=== PATIENT | female | born 1945 | race Caucasian/White ===

== ENCOUNTER 2023-09-05 11:48 | Outpatient (REF) | payer OTHER, MEDICAID, SELFPAY ==
[2023-09-05 14:28] LABS: Alanine Aminotransferase 22 U/L (0-31); Albumin Level 4.4 g/dL (3.5-5.0); Alkaline Phosphatase 84 U/L (39-117); Anion Gap 15 (12-20); Aspartate Amino Transferase 24 U/L (5-31); Bilirubin Direct < 0.2 mg/dL (0.0-0.5); Bilirubin Total 0.2 mg/dL (0.0-1.0); Blood Urea Nitrogen 24 mg/dL (9-16); Calcium 10.1 mg/dL (8.4-10.2); Carbon Dioxide 23 mmol/L (22-29); Chloride 104 mmol/L (96-108); Cholesterol 235 mg/dL (<200); Estimated Glomerular Filt Rate 40; Glucose Random 253 mg/dL (60-115); HDL Cholesterol 77 mg/dL (>40); LDL Cholesterol Calculated 134 mg/dL (<100); Potassium 4.6 mmol/L (3.3-5.1); Sodium 137 mmol/L (135-145); Total Protein 7.6 g/dL (6.5-8.0); Triglycerides 121 mg/dL (<150)
[2023-09-05 14:46] LABS: Thyroid Stimulating Hormone 0.66 uIU/mL (0.32-4.0)
== END 2023-09-05 11:49 | disposition home or self-care (01) ==
LOC: HO.CHCLDS 11:48
PROVIDERS: Visit Provider Student in an Organized Health Care Education/Training Program
DX: I12.9 Hypertensive chronic kidney disease with stage 1 through stage 4 chronic kidney disease, or unspecified chronic kidney disease (principal); E11.22 Type 2 diabetes mellitus with diabetic chronic kidney disease; N18.9 Chronic kidney disease, unspecified; E03.9 Hypothyroidism, unspecified
CPT/HCPCS: 36415; 80048; 80061; 80076; 84443

== ENCOUNTER 2024-01-11 09:33 | Outpatient (REF) | payer OTHER, MEDICAID, SELFPAY ==
[2024-01-11 15:16] LABS: Alanine Aminotransferase 14 U/L (0-31); Albumin Level 4.3 g/dL (3.5-5.0); Alkaline Phosphatase 75 U/L (39-117); Anion Gap 15 (12-20); Aspartate Amino Transferase 16 U/L (5-31); Bilirubin Direct < 0.2 mg/dL (0.0-0.5); Bilirubin Total 0.2 mg/dL (0.0-1.0); Blood Urea Nitrogen 22 mg/dL (9-16); Calcium 10.2 mg/dL (8.4-10.2); Carbon Dioxide 27 mmol/L (22-29); Chloride 103 mmol/L (96-108); Cholesterol 222 mg/dL (<200); Estimated Glomerular Filt Rate 51; Glucose Random 111 mg/dL (60-115); HDL Cholesterol 71 mg/dL (>40); LDL Cholesterol Calculated 129 mg/dL (<100); Potassium 4.7 mmol/L (3.3-5.1); Sodium 140 mmol/L (135-145); Total Protein 7.5 g/dL (6.5-8.0); Triglycerides 113 mg/dL (<150)
[2024-01-11 15:24] LABS: Thyroid Stimulating Hormone 0.95 uIU/mL (0.32-4.0)
== END 2024-01-11 09:34 | disposition home or self-care (01) ==
LOC: HO.CHCLDS 09:33
PROVIDERS: Visit Provider Student in an Organized Health Care Education/Training Program
DX: E03.9 Hypothyroidism, unspecified (principal); I10 Essential (primary) hypertension
CPT/HCPCS: 36415; 80048; 80061; 80076; 84443

== ENCOUNTER 2024-05-15 11:16 | Outpatient (REF) | payer OTHER, MEDICAID, SELFPAY ==
[2024-05-15 14:44] LABS: Alanine Aminotransferase 14 U/L (0-31); Albumin Level 4.5 g/dL (3.5-5.0); Alkaline Phosphatase 72 U/L (39-117); Anion Gap 15 (12-20); Aspartate Amino Transferase 20 U/L (5-31); Bilirubin Direct 0.1 mg/dL (0.0-0.5); Bilirubin Total 0.3 mg/dL (0.0-1.0); Blood Urea Nitrogen 27 mg/dL (9-16); Calcium 10.5 mg/dL (8.4-10.2); Carbon Dioxide 26 mmol/L (22-29); Chloride 106 mmol/L (96-108); Cholesterol 216 mg/dL (<200); Estimated Glomerular Filt Rate 47; Glucose Random 129 mg/dL (60-115); HDL Cholesterol 67 mg/dL (>40); LDL Cholesterol Calculated 125 mg/dL (<100); Potassium 4.9 mmol/L (3.3-5.1); Sodium 142 mmol/L (135-145); Total Protein 8.1 g/dL (6.5-8.0); Triglycerides 121 mg/dL (<150)
[2024-05-15 14:50] LABS: Estimated Average Glucose 157 mg/dL; Hemoglobin A1c % 7.1 % (<6.0)
[2024-05-15 15:01] LABS: TSH reflex Free T4 1.78 uIU/mL (0.32-4.0)
== END 2024-05-15 11:17 | disposition home or self-care (01) ==
LOC: HO.CHCLDS 11:16
PROVIDERS: Visit Provider Student in an Organized Health Care Education/Training Program
DX: E11.22 Type 2 diabetes mellitus with diabetic chronic kidney disease (principal); I12.9 Hypertensive chronic kidney disease with stage 1 through stage 4 chronic kidney disease, or unspecified chronic kidney disease; E03.9 Hypothyroidism, unspecified; N18.30 Chronic kidney disease, stage 3 unspecified
CPT/HCPCS: 36415; 80048; 80061; 80076; 83036; 84443

== ENCOUNTER 2024-11-28 11:07 | Outpatient (REF) | payer OTHER, SELFPAY ==
--- OUTSIDE RECORDS SUMMARY | 2024-11-28 12:49 | XMS_ITS | Encounter Summary ---
Author Organization [employer] Address [address] [facility] [address] [place] [address] Care Team Providers Care Preparation Supervisor Freezing Name Role Phone Vanessa Pettit MD Primary Care Provider [phone] Encounter Details Date Type Department Care Team (Latest Contact Info) Description 11/28/2024 Travel Social History Tobacco Use Types Packs/Day Years Used Date Smoking Tobacco: Never Passive Smoke Exposure: Never Smokeless Tobacco: Never Alcohol Use Standard Drinks/Week Comments Never 0 (1 standard drink = 0.6 oz pur e alcohol) Alcohol Answer Date Recorded Frequency of Alcohol Consumption Not on file 01/11/2024 Average Number of Drinks Not on file 024 Frequency of Binge Drinking Not on file 12/17 Score 0 01/11/2024 Depression Answer Date Recorded Patient Health Questionnaire-9 Score 4 10/02/2024 Patient Health Questionnaire-9 Score 4 10/02/2024 Last PHQ-9: Questionnaire Data Not on file 0 10/02/2024 Housing Stability Answer Date Recorded What is your housing situation today? I have shawn vergara 01/11/[address] you li ve. Do you have problems with any of the following? None of the above 01/11/2024 Food Insecurity Answer Date Recorded Within the past 12 months, y ou worried that your food would run out before you got money to buy more: Never True 01/11/2024 Within the past 12 months,th e food you bought just didn't last and you didn't have enough money to get more: Never True Transportation Answer Date Recorded In the past 12 months, has l ack of transportation kept you from medical appts, meetings, work or from getting things needed for daily living? No 01/11/2024 Utilities Answer Date Recorded In the past 12 months, has t he electric, gas, oil or water company threatened to shut off services in your home? No 01/11/2024 Depression Answer Date Recorded Patient Health Questionnaire-2 Score 0 10/02/2024 Comments No Sex and Gender Information Value Date Recorded Sex Assigned at Female 07/17/2022 10:18 AM EDT Legal Sex Female 10:18 AM EDT Gender Identity Female 07/17/2022 10:18 AM EDT Sexual Orientation Straight 07/17/2022 10 :18 AM EDT documented as of this encounter Plan of Treatment Upcoming Encounters Date Type Department Care Team (Late st Contact Info) Description 12/19/2024 9:15 AM EDT Office Visit [facility] MED & PEDS [address] [place] [address] Vanessa Pettit MD [address] [place] [address] documented as of this encounter Goals Goal Patient Goal Type Associated Problems Recent Progress Patient-Stated? Author Blood Pressure < 140/90 Blood Pressure 182/84(11/28 10:08 AM EDT) No Jaren Martines, PharmD Hemoglobin A1c < 8 Result Component 7.1(05/15/20 24 11:19 AM EDT) No Jaren Martines, PharmD Note: Age 77, multiple comorbidities documented as of this encounter Visit Diagnoses Not on filedocumented in this encounter Additional Health Concerns Assessment Noted Time PHQ-9 Depression Total Score: 4 10/02/19 25 10:43 AM EST documented as of this encounter Care Teams Preparation Supervisor Freezing Relationship Specialty Start Date End Date Vanessa Pettit MD [address] [place] [id number] PCP - General Family Medicine 08/29/12 documented as of this encounter
--- OUTSIDE RECORDS SUMMARY | 2024-11-28 12:49 | XMS_ITS | Encounter Summary ---
Author Organization [employer] Address 75 [facility] 7t [place] [address] Care Team Providers Care Machine Or Machinery Mechanic Name Role Phone Vanessa Pettit MD Primary Care Provider [phone] Encounter Details Date Type Department Care Team (Late Contact Info) Description 09/08/2022 Orders Only [facility] MEDICINE [address] [place] [address] Vanessa Pettit MD [address] [place], [place] [phone] Type 2 diabetes mellitus without complication, without long-term current use of insulin ([facility]) (Primary Dx) Social History Tobacco Use Types Packs/Day Years Used Date Smoking Tobacco: Never Assessed Comments Unknown Sex and Gender Information Value Date Recorded Sex Assigned at Female 07/17/2022 10:18 AM EDT Legal Sex Female 10:18 AM EDT Gender Identity Female 07/17/2022 10:18 AM EDT Sexual Orientation Straight 07/17/2022 10 :18 AM EDT COVID-19 Exposure Response Date Recorded In the last 10 days, have yo u been in contact with someone who was confirmed or suspected to have Coronavirus/COVID-19? No / Unsure 09/07/2022 8:58 AM EST documented as of this encounter Plan of Treatment Upcoming Encounters Date Type Department Care Team (Late Contact Info) Description 12/19/2024 9:15 AM EDT Office Visit [facility] MED & PEDS [address] [place], [place] [phone] Vanessa Pettit MD [address] [place], [place] [phone] documented as of this encounter Goals Goal Patient Goal Type Associated Problems Recent Progress Patient-Stated? Author Blood Pressure < 140/90 Blood Pressure 182/84(11/28 10:08 AM EDT) No Jaren Martines PharmD Hemoglobin A1c < 8 Result Component 7.1(05/15/20 11:19 AM EDT) No Jaren Martines PharmD Note: Age 77, multiple comorbidities documented as of this encounter Visit Diagnoses Diagnosis Type 2 diabetes mellitus without complication, without long-term current use of insulin ([facility])- Primary documented in this encounter Care Teams Machine Or Machinery Mechanic Relationship Specialty Start Date End Date Vanessa Pettit MD [address] [place] [phone] PCP - General Family Medicine 08/29/12 documented as of this encounter
--- OUTSIDE RECORDS SUMMARY | 2024-11-28 12:49 | XMS_ITS | Encounter Summary ---
Author Organization [employer] Address [address] [facility] 7t [place] [address] Care Team Providers Care Med Aide Name Role Phone Vanessa Pettit MD Primary Care Provider [phone] Reason for Visit * Reason Comments Med Refill Encounter Details Date Type Department Care Team ([facility] st Contact Info) Description 11/27/2024 Refill [facility] MEDICINE [address] [place] [address] Vanessa Pettit MD [address] [place], [place] [phone] Social History Tobacco Use Types Packs/Day Years Used Date Smoking Tobacco: Never Smokeless Tobacco: Never Alcohol Use Standard [...] Description 12/19/2024 9:15 AM EDT Office Visit [facility] MED & PEDS [address] [place] [address] Vanessa Pettit MD [address] [place] [address] documented as of this encounter Goals Goal [...] documented as of this encounter Care Teams Med Aide Relationship Specialty Start Date End Date Vanessa Pettit MD [address] [place] [id number] PCP - General Family Medicine 08/29/12 documented as of this encounter
--- OUTSIDE RECORDS SUMMARY | 2024-11-28 12:49 | XMS_ITS | Encounter Summary ---
Author Organization [employer] Address 75 [facility] 7t [place] [address] Care Team Providers Care Machine Shorthand Reporter Name Role Phone Vanessa Pettit MD Primary Care Provider [phone] Encounter Details Date Type Department Care Team ([facility] Contact Info) Description 03/16/2023 Orders Only [facility] MED & PEDS [address] [place] [address] Vanessa Pettit MD [address] [place] [address] Social History Tobacco Use Types Packs/Day Years Used Date Smoking Tobacco: Never Smokeless Tobacco: Never Alcohol Use Standard Drinks/Week Comments Never 0 (1 standard drink = 0.6 oz pur e alcohol) Comments Unknown Sex and Gender Information Value [...] suspected to have Coronavirus/COVID-19? No / Unsure 03/14/2023 9:02 AM EDT documented as of this encounter Plan of Treatment Upcoming Encounters Date Type Department Care Team ([facility] Contact Info) Description 12/19/2024 9:15 AM EDT Office Visit [facility] MED & PEDS [address] [place], [place] [phone] Vanessa Pettit MD [address] [place] [address] documented as of this encounter Goals Goal Patient Goal Type Associated Problems Recent Progress Patient-Stated? Author Blood Pressure < 140/90 Blood Pressure 182/84(11/28 10:08 AM EDT) No Jaren Martines, PharmBubba Hemoglobin A1c < 8 Result Component 7.1(05/15/20 11:19 AM EDT) No Jaren Martines PharmD Note: Age 77, multiple comorbidities documented as of this encounter Visit Diagnoses Not on filedocumented in this encounter Care Teams Machine Shorthand Reporter Relationship Specialty Start Date End Date Vanessa Pettit MD [address] [place] [phone] PCP - General Family Medicine 08/29/12 documented as of this encounter
--- OUTSIDE RECORDS SUMMARY | 2024-11-28 12:49 | XMS_ITS | Encounter Summary ---
Author Organization [facility] Address [address] [place] [address] Phone Care Team Providers Care Shuttle Repairer Name Role Phone Vanessa Pettit MD Primary Care Provider [phone] Encounter Details Date Type Department Care Team (Late st Contact Info) Description 11/27/2022 Documentation Only [facility], [address] [place] [address] Vanessa Pettit MD [address] [place], [place] [phone] Social History Tobacco Use Types Packs/Day Years Used Date Smoking Tobacco: Never Alcohol Use Standard Drinks/Week Comments No 0 (1 standard drink = 0.6 oz pur e alcohol) Comments Unknown Sex and Gender Information Value Date Recorded Sex Assigned at Not on file Legal Sex Female 4:30 PM EST Gender Identity Not on file Sexual Orientation Not on file documented as of this encounter Plan of Treatment Not on file documented as of this encounter Visit Diagnoses Not on filedocumented in this encounter Care Teams Shuttle Repairer Relationship Specialty Start Date End Date Vanessa Pettit MD [address] [place] [phone] PCP - General 07/22/19 documented as of this encounter
--- OUTSIDE RECORDS SUMMARY | 2024-11-28 12:49 | XMS_ITS | Clinical Summary ---
Author Organization [employer] Address 75 [facility] 7t [place] [address] Care Team Providers Care Nailing Machine Operator Automatic Name Role Phone Vanessa Pettit MD Primary Care Provider [phone] Allergies No known active allergies Medications acetaminophen (Tylenol 8 Hour) 650 MG ER tablet take 1 Tablet by oral route every 8 hours as needed 10/24/19 20 Active isosorbide mononitrate ER (Imdur) 30 MG 24 hr tablet Take 1 tablet by mouth in the morning. 06/19/20 22 Active Lifitegrast (Xiidra) 5 % solution Administer 1 drop into affected eye(s) every 12 (twelve) hours. Active Lancet Devices (Autolet) lancing device 1 each by Other route if needed. Use as instructed Active atorvastatin (Lipitor) 40 MG tablet Take 40 mg by mouth at bedtime. 12/14/19 23 Active mirtazapine (Remeron) 15 MG tablet Take 1 tablet (15 mg) by mouth at bedtime. 30 tablet 3 04/13/20 23 Active Blood Glucose Monitoring Suppl (ONE TOUCH ULTRA 2) w/Device kit TEST BLOOD SUGAR TWICE DAILY 1 kit 2 07/09/20 23 Active lidocaine-pril ocaine (Emla) 2.5-2.5 % cream Apply topically 2 times daily. 30 g 11 10/05/19 24 Active amLODIPine (Norvasc) 10 MG tablet TAKE ONE TABLET EVERY MORNING 90 tablet 3 03/04/20 24 Active ibuprofen 200 MG tablet Take 1 tablet (200 mg) by mouth Once per day. 100 tablet 2 05/15/20 24 025 Active cholecalcifero l (Vitamin D-3) 25 MCG (1000 UT) capsule Take 1 capsule (25 mcg) by mouth Once per day. 30 capsule 11 05/15/20 24 Active Aspirin Adult Low Strength 81 MG EC tablet TAKE ONE TABLET EVERY MORNING 30 tablet 11 06/04/20 24 Active Jardiance 25 MG TAKE ONE TABLET EVERY MORNING BEFORE BREAKFAST 30 tablet 3 07/01/20 24 Active metFORMIN (Glucophage) 500 MG tablet TAKE ONE TABLET TWICE DAILY IN THE MORNING AND AT BEDTIME 60 tablet 3 07/01/20 24 025 Active carvedilol (Coreg) 6.25 MG tablet TAKE ONE TABLET IN THE MORNING AND EVENING WITH MEALS 60 tablet 3 07/01/20 24 Active OneTouch Ultra Test test stripIndicatio ns:Type 2 diabetes mellitus with stage 3 chronic kidney disease, without long-term current use of insulin, unspecified whether stage 3a or 3b CKD (CMS/HCC) TEST BLOOD SUGAR TWICE DAILY 100 strip 11 07/22/20 24 Active omeprazole (PriLOSEC) [address] capsule TAKE ONE CAPSULE EVERY MORNING BEFORE BREAKFAST 90 capsule 3 07/22/20 24 Active Lancets (OneTouch Delica Plus [id number]) [facility] [place] BLOOD SUGAR TWICE DAILY 100 each 11 09/04/20 24 Active levothyroxine (Synthroid, Levoxyl) 75 MCG tablet TAKE ONE TABLET EVERY MORNING 90 tablet 09/15/20 24 Active hydrALAZINE (Apresoline) 25 MG tablet TAKE ONE TABLET EVERY MORNING 30 tablet 10/07/19 25 Active traZODone (Desyrel) 50 MG tabletIndicati ons:Insomnia, unspecified type TAKE ONE TABLET EVERY NIGHT AT BEDTIME 30 tablet 10/07/19 25 Active Dulaglutide (Trulicity) 1.5 MG/0.5ML solution auto-injectorI ndications:Typ e 2 diabetes mellitus with stage 3 chronic kidney disease, without long-term current use of insulin, unspecified whether stage 3a or 3b CKD (CMS/HCC) Inject 1.5 mg under the skin 1 (one) time per week. 2 mL 3 11/19/19 25 Active Dulaglutide (Trulicity) 1.5 MG/0.5ML solution auto-injectorI ndications:Typ e 2 diabetes mellitus with stage 3 chronic kidney disease, without long-term current use of insulin, unspecified whether stage 3a or 3b CKD (CMS/HCC) Inject 1.5 mg under the skin 1 (one) time per week. 2 mL 3 11/19/19 25 Active loratadine (Claritin) 10 MG tablet TAKE ONE TABLET EVERY MORNING 30 tablet 3 11/29/19 25 Active loratadine (Claritin) 10 MG tablet TAKE ONE TABLET EVERY MORNING 30 tablet 3 05/13/20 24 025 Discontinued Dulaglutide (Trulicity) 1.5 MG/0.5ML solution auto-injectorI ndications:Typ e 2 diabetes mellitus with stage 3 chronic kidney disease, without long-term current use of insulin, unspecified whether stage 3a or 3b CKD (CMS/HCC) Inject 0.5 mL (1.5 mg) under the skin 1 (one) time per week. 2 mL 3 07/28/20 24 025 Discontinued(Re order (will not trigger notification to Pharmacy)) polyethylene glycol, PEG, 3350 (MiraLax) 17 GM/SCOOP powder Take 17 g by mouth Once per day. 527 g 2 07/28/20 24 025 Dulaglutide (Trulicity) 1.5 MG/0.5ML solution auto-injectorI ndications:Typ e 2 diabetes mellitus with stage 3 chronic kidney disease, without long-term current use of insulin, unspecified whether stage 3a or 3b CKD (CMS/HCC) Inject 1.5 mg under the skin 1 (one) time per week. 2 mL 3 11/14/19 25 025 Discontinued(Re order (will not trigger notification to Pharmacy)) Active Problems Problem Noted Date Diagnosed Date Hypothyroidism 11/27/2022 Chronic kidney disease (CKD) 09/07/2022 Hypertensive kidney disease, stage III 0 Acquired trigger finger 12/11/2011 Allergic rhinitis 12/11/2011 Diabetes mellitus 12/11/2011 Essential hypertension 12/11/2011 Pain in limb 12/11/2011 Hypercholesterolemia 12/11/2011 Encounters Date Type Department Care Team Description 11/28/2024 10:40 AM EDT Office Visit [facility] MED & PEDS [address] [place] [address] Emily Jacobson MD Essential hypertension (Primary Dx); Acquired hypothyroidism; Weight loss 11/28/2024 Travel 11/27/2024 Refill [facility] MEDICINE [address] [place] [address] Vanessa Pettit MD 11/14/2024 Orders Only [facility] 230 [place] [address] Dennis Carias MD Type 2 diabetes mellitus with stage 3 chronic kidney disease, without long-term current use of insulin, unspecified whether stage 3a or 3b CKD ([facility]) 11/14/2024 Telephone [facility] MED[facility] [address] [place] [address] Vanessa Pettit MD Nurse Triage 11/14/2024 Refill [facility] MED[facility] [address] [place] [address] Vanessa Pettit MD Type 2 diabetes mellitus with stage 3 chronic kidney disease, without long-term current use of insulin, unspecified whether stage 3a or 3b CKD ([facility]) 10/03/2024 Refill [facility] MED & PEDS [address] [place] [address] Vanessa Pettit MD Insomnia, unspecified type 10/02/2024 10:00 AM EST Office Visit [facility] MED & PEDS [address] [place] [address] Dennis Carias MD Viral URI (Primary Dx); Benign paroxysmal positional vertigo of right ear 10/02/2024 Travel 10/01/2024 Telephone [facility] MED & PEDS [address] [place] [address] aVnessa Pettit MD Nurse Triage 09/14/2024 Refill [facility] MEDICINE [address] [place] [address] Vanessa Pettit MD 09/04/2024 Refill [facility] DIABETES/NUTRITION [address] [place] [address] Vanessa Pettit MD from Last 3 Months Immunizations Name Administration Dates Next Due Influenza High-dose Quadriva lent Preservative Free 06/06/2021 Influenza Quadrivalent Adjuvanted 06/07/2022 Influenza injectable quadriv alent IIV4 with preservative 06/25/2019,08/05/2018,06/27/2016 Influenza injectable quadriv alent preservative free 07/04/2017 Influenza, High Dose Seasona l, Preservative Free 07/07/2024 Influenza, IIV3, injectable 06/25/2014 Influenza, Split (incl. chaparro fied surface antigen) 06/18/2013,05/30/2012 Influenza, seasonal, injecta ble, preservative free 05/31/2020 Moderna Covid-19 Vaccine 12+ 04/21/2022, 07/08/2021,12/22/2020,11/24 Pneumococcal Conjugate PCV 13 06/27/2016 Pneumococcal Conjugate PCV 20 04/28/2024 Pneumococcal Polysaccharide PPSV23 08/05/2018 Tdap 03/06/2018 Zoster, Recombinant 11/16/2022,09/07/2022 Social History Tobacco Use Types Packs/Day Years Used Date Smoking Tobacco: Never Passive Smoke Exposure: Never Smokeless Tobacco: Never Tobacco Cessation:Counseling Given: Not Answered Alcohol Use Standard Drinks/Week Comments Never 0 [...] Orientation Straight 07/17/2022 10 :18 AM EDT Last Filed Vital Signs Vital Sign Reading Time Taken Comments Blood Pressure 182/84 11/28/2024 10:08 AM EDT Pulse 70 11/28/2024 10:08 AM EDT Temperature 35.9 ??C (96.7 ??F) 11/28/2024 10:08 AM E DT Respiratory Rate 16 11/28/2024 10:08 AM EDT Oxygen Saturation 98% 11/28/2024 10:08 AM EDT Inhaled Oxygen Concentration - - Weight 52.2 kg (115 lb) 11/28/2024 10:08 AM EDT Height 147.3 cm (4' 10 ) 11/28/2024 10:08 AM EDT Body Mass Index 24.04 11/28/2024 10:08 AM EDT Plan of Treatment Upcoming Encounters Date Type Department Care Team (Late st Contact Info) Description 12/19/2024 9:15 AM EDT Office Visit [facility] MED & PEDS [address] [place] [address] Vanessa Pettit MD [address] [place] [address] Health Maintenance Due Date Last Done Comments Dental Oral Exam 1944 Dental Prophylaxis 1945 Dental X-Ray: Bitewings 1945 Eye Exam 02/15/1954 Dental X-Ray: Full Mouth 09/23/2018 09/22/2015 RSV Patients and Patients Aged 60 years or older (1 - 1-dose 75+ series) 02/15/2019 COVID-19 Vaccine ( season) 2024 04/28/2024, 04/21/2022, 07/08/2021, Additional history exists Diabetes: Hemoglobin A1C 08/15/2024 024, 01/11/2024, 09/05/2023, Additional history exists Diabetes: Foot Exam 11/07/2024 11/07/2023, 11/07/2023, 11/07/2023, Additional history exists Alcohol/Substance Use Screening 01/10/2025 01/11/2024 SDOH Screening 01/10/2025 01/11/2024 Lipid Panel 05/15/2025 05/15/2024, 12/17, 09/05/2023, Additional history exists Depression Screening 10/02/2025 10/02/2024, 10/02/19 Tobacco Screening 11/28/2025 11/28/2024 DTaP/Tdap/Td Vaccines (2 - Td or Tdap) 03/06/2028 03/06/2018 Zoster Vaccines Completed 11/16/2022, 09/07/2022 Pneumococcal Vaccine: 50+ Years Completed 04/28/2024, 08/05/2018, 06/27/2016 Influenza Vaccine Completed 07/07/2024, , 06/06/2021, Additional history exists HIB Vaccines Aged Out No longer eligi ble based on patient's age to complete this topic HPV Vaccines Aged Out No longer eligi ble based on patient's age to complete this topic Hepatitis A Vaccines Aged Out No long er eligible based on patient's age to complete this topic Hepatitis B Vaccines Aged Out No long er eligible based on patient's age to complete this topic IPV Vaccines Aged Out No longer eligi ble based on patient's age to complete this topic Meningococcal Vaccine Aged Out No francine clint eligible based on patient's age to complete this topic RSV under 20 months Aged Out No longe r eligible based on patient's age to complete this topic Rotavirus Vaccines Aged Out No longer eligible based on patient's age to complete this topic Goals Goal Patient Goal Type Associated Problems Recent Progress Patient-Stated? Author Blood Pressure < 140/90 Blood Pressure 182/84(11/28 10:08 AM EDT) No Jaren Martines, PharmD Hemoglobin A1c < 8 Result Component 7.1(05/15/20 11:19 AM EDT) No Jaren Martines, PharmD Note: Age 77, multiple comorbidities Procedures Procedure Name Priority Date/Time Associated Diagnosis Comments HEMOGLOBIN A1C Routine 05/15/2024 11:19 AM EDT Type 2 diabetes mellitus with stage 3 chronic kidney disease, without long-term current use of insulin, unspecified whether stage 3a or 3b CKD ([facility]) LIPID PANEL, STANDARD Routine 05/15/2024 11:19 AM EDT Stage 3 chronic kidney disease, unspecified whether stage 3a or 3b CKD (CMS/HCC) Essential hypertension Type 2 diabetes mellitus with stage 3 chronic kidney disease, without long-term current use of insulin, unspecified whether stage 3a or 3b CKD ([facility]/HCC) PANORAMIC RADIOGRAPHIC IMAGE Routine 09/22/2015 12:00 AM EST from Last 3 Months or Most Recently Relevant to Health Maintenance Results * (ABNORMAL) Hemoglobin A1c (05/15/2024 11:19 AM EDT) Hemoglobin A1c 7.1(H) <6.0 % [facility] Comment:Hemoglobin A1C Refer ence Range Adults: 4.8 - 6.0 % Non diabetic: < 6.0 % Goal: < 7.0 %Additional Action Suggested: > 8.0 %Note: Hemoglobin A1c results are invalid for patients with abnormal amounts of HbF. Blood transfusions may impact the HbA1c concentration in the patient sample. Estimated Average Glucose 157 mg/dL [facility] Comment:eAG = Estimated ave rage glucose which is %A1C expressed asaverage glucose, using the formula of the T7N-[id number] Glucose study (ADAG), Diabetes Care, Vol.31,#8,Apr. 2007 Blood Venous blood specimen / Unknown 05/15/2024 11:19 AM EDT 05/15/2024 2:18 PM EDT us Vanessa Pettit MD LAB BLOOD ORDERABLES Final Resul t [facility] [address] [place] [phone] * (ABNORMAL) Lipid Panel, Standard (05/15/2024 11:19 AM EDT) Triglycerides 121 <150 mg/dL [facility] Comment:Desirable Triglyceri de: less than 150 mg/dLBorderline High Triglyceride 150-199 mg/dLHigh Triglyceride: 200-499 mg/dLVery High Triglyceride: greater than or equal to 5OO mg/dL Cholesterol 216(H) <200 mg/dL [facility] Comment:Desirable Cholestero l: less than 200 mg/dLBorderline High Cholesterol: 200-239 mg/dLHigh Cholesterol: greater than 239 mg/dL LDL Cholesterol Calculated 125(H) <100 mg/dL [facility] Comment:Desirable LDL: less than 100 mg/dLNear Optimal/Above Optimal LDL: 110- 129 mg/dLBorderline High LDL: 130-159 mg/dLHigh LDL: 160-189 mg/dLVery High LDL: greater than or equal to 190 mg/dL HDL Cholesterol 67 >40 mg/dL [facility] Comment:Desirable HDL: great er than 40 mg/dL Note: This HDL assay may give artificially low results in patients with liver disease. Blood Venous blood specimen / Unknown 05/15/2024 11:19 AM EDT 05/15/2024 2:18 PM EDT us Vanessa Pettit MD LAB BLOOD ORDERABLES Final Resul t [facility] [address] [place] [phone] [phone] from Last 3 Months or Most Recently Relevant to Health Maintenance [place] [address] [place] [address] STANDARD [employer] Care Teams Nailing Machine Operator Automatic Relationship Specialty Start Date End Date Vanessa Pettit MD [address] [place] [id number] PCP - General Family Medicine 08/29/12
--- OUTSIDE RECORDS SUMMARY | 2024-11-28 12:49 | XMS_ITS | Clinical Summary ---
Author Organization [facility], Address [address] [place] [address] [place] [address] Phone Care Team Providers Care Calender Let Off Helper Name Role Phone Vanessa Pettit MD Primary Care Provider [phone] Allergies No known active allergies Medications ASPIRIN 81 PO Take 1 tablet by mouth 1 (one) time each day Active albuterol HFA (PROAIR HFA) 108 (90 Base) MCG/ACT inhaler Inhale 2 puffs 4 (four) times a day Active Blood Glucose Monitoring Suppl (AesRx) w/Device kit USE DIRECTED 07/28/20 19 Active carvedilol (COREG) 6.25 MG tablet TK 1 T PO BID WF 07/23/20 19 Active clopidogrel (PLAVIX) 75 MG tablet TK 1 T PO QD 07/23/20 19 Active conjugated estrogens (PREMARIN) vaginal cream Active fluticasone (FLONASE) 50 MCG/ACT nasal spray U 1 TO 2 SPRAYS IEN QD PRN 08/24/20 19 Active glipiZIDE (GLUCOTROL) 10 MG tablet TK 1 T PO BID B MEALS 08/20/20 19 Active ONE TOUCH ULTRA TEST test strip USE TO CHECK BLOOD GLUCOSE BID 07/21/20 19 Active levothyroxine (SYNTHROID, LEVOTHROID) 75 MCG tablet Take 1 tablet by mouth 1 (one) time each day Active lisinopril (PRINIVIL,ZESTR IL) 20 MG tablet TK 1 T PO D 09/18/19 20 Active loratadine (CLARITIN) 10 MG tablet TK 1 T PO QD 08/22/20 19 Active metFORMIN (GLUCOPHAGE) 1000 MG tablet TK 1 T PO BID WITH MORNING AND EVENING MEALS 08/23/20 19 Active omeprazole (PriLOSEC) [address] capsule TK 1 C PO QD AC 08/23/20 19 Active pravastatin (PRAVACHOL) 80 MG tablet TK 1 T PO D 08/23/20 19 Active amLODIPine (NORVASC) 5 MG tablet Take 5 mg by mouth every morning 12/09/19 23 Active Aspirin Low Dose 81 MG EC tablet Take 81 mg by mouth every morning 12/09/19 23 Active atorvastatin (LIPITOR) 10 MG tablet 10 mg every night 12/09/19 23 Active atorvastatin (LIPITOR) 40 MG tablet 40 mg every night 12/14/19 23 Active cyclobenzaprine (FLEXERIL) 5 MG tablet Take 5 mg by mouth 3 (three) times a day if needed 11/28/19 23 Active Trulicity 0.75 MG/0.5ML solution pen-injector INJECT ONE PEN (=0.75MG) SUBCUTANEOUSLY ONCE A WEEK DIRECTED 01/10/20 23 Active Jardiance 25 MG tablet TAKE ONE TABLET EVERY MORNING BEFORE BREAKFAST 12/09/19 23 Active isosorbide mononitrate (IMDUR) 30 MG 24 hr tablet Take 30 mg by mouth every morning 12/09/19 23 Active Lancets (OneTouch Delica Plus [id number]) misc 01/24/20 23 Active metFORMIN (GLUCOPHAGE) 500 MG tablet TAKE ONE TABLET TWICE DAILY IN THE MORNING AND AT BEDTIME 12/09/19 23 Active traZODone (DESYREL) 50 MG tablet 50 mg every night 12/09/19 23 Active Active Problems Problem Noted Date Diagnosed Date Essential (primary) hypertension 01/30/2024 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 on 09/22/2019 Hypercholesterolemia 09/22/2019 Renal disorder due to type 2 diabetes mellitus 0 09/22/2019 Family History Relation Status Comments Father Unknown Mother Unknown Social History Tobacco Use Types Packs/Day Years Used Date Smoking Tobacco: Never Alcohol Use Standard Drinks/Week Comments No 0 (1 standard drink = 0.6 oz pur e alcohol) Comments Unknown Sex and Gender Information Value Date Recorded Sex Assigned at Not on file Legal Sex Female 4:30 PM EST Gender Identity Not on file Sexual Orientation Not on file Last Filed Vital Signs Vital Sign Reading Time Taken Comments Blood Pressure 140/70 01/25/2023 2:54 PM EDT Pulse 72 04/18/2018 12:00 PM EDT Temperature - - Respiratory Rate 22 11/23/2017 12:00 PM EST Oxygen Saturation - - Inhaled Oxygen Concentration - - Weight 64.4 kg (142 lb) 06/21/2018 12:00 PM EDT Height 149.9 cm (4' 11 ) 02/03/2019 12:00 PM EDT Body Mass Index 28.68 06/21/2018 12:00 PM EDT Plan of Treatment Health Maintenance Due Date Last Done Comments Diabetes: Ophthalmology Exam 09/22/2019 Diabetes: Pedal Pulse Checked 09/22/2019 Diabetes: Sensory Foot Exam 09/22/2019 Diabetes: Visual Foot Exam 09/22/2019 Diabetes: Hemoglobin A1C 02/27/2023 11/27/2022 Influenza Vaccine (#1) 2024 2, 05/31/2020, 06/25/2019, Additional history exists Pneumococcal Vaccine: 65+ Years Completed 08/05/2018, 06/27/2016 Hepatitis B Vaccine Aged Out No longe r eligible based on patient's age to complete this topic Procedures Procedure Name Priority Date/Time Associated Diagnosis Comments CBC Routine 07/30/2020 9:08 AM EST 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 0) FL [facility] MCH 27.8 (27.0-34.0 ) PG [facility] MCHC 32.2(L) (33.0-37.0 ) g/dL [facility] Platelets 312 (150-460) K/MM3 [facility] RDW-SD 45.4 (<47.0) [place] [facility] MPV 11.1 (9.4-12.4) [place] [facility] nRBC Count 0.0 #/100 WBC'S [facility] NRBC Absolute 0.0 K/MM3 [facility] Comment: Testing performed or reported by [facility], a Service of [facility], [address] [place] [id number] Judy Burton MD, Clinical Rehabilitation Specialist Blood (Blood, Venous) 07/30/2020 9:08 AM EST 07/30/2020 9:10 AM EST David Reynolds MD LAB BLOOD ORDERABLES Final Result [facility] from Last 3 Months or Most Recently Relevant to Health Maintenance [place] [place] [address] Care Teams Calender Let Off Helper Relationship Specialty Start Date End Date Vanessa Pettit MD [address] [place] [id number] PCP - General 07/22/19
--- OUTSIDE RECORDS SUMMARY | 2024-11-28 12:49 | XMS_ITS | Data Portability ---
Author Organization [place] - [facility] Address [address] [place] [id number] Care Team Providers Care Clinical Genetics Laboratory Chief Name Role Phone NICKO HARRISON OTHER Assessment Encounter Date Assessment Date Assessment LastModified by Organization Details LastModified Time 10/01/2020 10/01/2020 Overview/History : 75yo female who is new to being seen today for diarrhea x 24hrs that has since resolved. She was exposed to a neice who tested (+) to Covid so family is requesting testing. Her PMHx includes DM, GERD, CHF, HTN, HLD, CKD, arthritis, and hypothyroidism. She reports her glucose levels have been within normal limits. She denies any fevers, dysuria, nausea, vomitting or rashes. She reports she had diarrhea yesterday that has since resolved. She denies any abdominal pain, cough, trouble breathing, chest pain or sore throat. She reports a normal appetite and is staying hydrated. She reports she can taste and smell as normal. Exam: Pt is alert, prydeinig speaking only, non toxic appearing Normal heart sounds, no edema Lungs are clear, no rales, rhonchi or wheezing Abd soft, non tender +BS No rashes DDx considered, but not limited to: Covid 19 possible Gastroenteritis possible- seems to have resolved, no abdominal pain or N/V. Flu less likely no fevers CHF exacerbation considered, no rales, JVD or edema. Work up/Results: Covid 19 Plan/Discussion: Anne was able to speak Slovak to patient and convey Covid results will be called in 3-5 days. She is currently not having any symptoms as diarrhea has resolved. She is eating and drinking normally, does not appear dehydrated- will defer labs. Advised to closely monitor her glucose levels. The patient is advised to make an appt with PCP in 3-5 days to discuss ongoing symptoms/ further management if needed. The patient is also advised to go to the ED immediately for any worsening symptoms. The patient understood and agreed with this plan. The patient was given discharge instructions and all questions were answered prior to DH team departure. In order to obtain further information and compare any laboratory results/values, I have accessed patient records on the [employer]. This information was pertinent in my medical decision making today. Proper Personal Protective Equipment (PPE), including gloves, eye protection, N95 mask, gown, and shoe covers were donned and doffed appropriately and all equipment cleaned using approved technique with germicidal disposable wipes prior to and after care of this patient according to [facility] infection prevention protocols. Not available 10/01/2020 21:04:41 10/08/2020 10/08/2020 Overview/History : 75-year-old Slovak speaking only female with past medical history significant for diabetes, hyperlipidemia, hypertension, CKD, hypothyroidism, osteoarthritis, takotsubo syndrome, GERD, and CHF, known to [facility] but new to this provider, who presents for complaints of cough after recent COVID exposure. Patient's son and family tested positive for COVID and the patient was exposed to them on Sunday. The patient states that 3 days ago she developed a dry cough and scratchy throat with a hoarse voice as well as bilateral ear pain. She denies fever, chills, shortness of breath, chest pain, loss of taste or smell. She reports a good appetite and no difficulty with ambulation or voiding. Exam: afebrile, RRR, mildly hypertensive, normal resps, O2 sat 100% on RA, non-toxic, well appearing. GENERAL: well developed, well nourished, appears stated age, sitting comfortably in no acute distress. HEENT: normocephalic, atraumatic, sinuses nontender, PERRL, EOMI, sclera anicteric, no conjunctival injection, external auditory canal clear with bilateral cerumen, unable to visualize TMs, nares patent, septum midline, turbinates mildly edematous and erythematous, posterior pharynx slightly erythematous without lesions, mmm. NECK: trachea midline, 2+ posterior cervical lymphadenopathy with tenderness on the right, no anterior cervical lymphadenopathy. RESP: normal I:E, clear to auscultation bilaterally, no wheezes, rhonchi, or rales. CARDIO: RRR, normal S1, S2, no murmurs, rubs, or gallops, radial pulse 2+. DDx considered, but not limited to: strep - unlikely no tonsillar exudates, afebrile, no anterior cervical lymphadenopathy, +cough flu - less likely, afebrile and recent COVID exposure covid - likely with viral URI sxs, posterior cervical lymphadenopathy, and +COVID exposure rhinosinusitis - unlikely, no sinus tenderness thrush - unlikely, no white exudate suppurative AOM - unlikely, sxs are bilateraly, afebrile, no sinus tenderness or sputum production Work up/Results: COVID test pending. Plan/Discussion: You likely have COVID based on your symptoms and recent exposure. Treat symptoms with tylenol, salt water gargles, hot tea, nasal saline spray, and Tessalon perles as needed. Symptoms typically self-limiting over 1-2 weeks. Quarantine for at least 10 days, must be without symptoms for at least 3 days prior to breaking quarantine. [facility] for shortness of breath or productive cough. Follow up with PCP. We will call with COVID test results in 3-5 days. Call Emergency contact/HCP to give results. [facility] you [facility]. We cannot always find the exact cause of your symptoms during your initial visit. Please follow up with your primary care provider or specialist to be rechecked or seek medical attention if your symptoms do not go away or get worse. If you develop any new or worsening symptoms and need after hours care, please go to nearest ER and/or call 911. If you have additional concerns or develop a change in your condition between 8am-10pm, please call [facility] at [phone] to help navigate your care. Proper Personal Protective Equipment (PPE), including gloves, eye protection, N95 mask, gown, and shoe covers were donned and doffed appropriately and all equipment cleaned using approved technique with germicidal disposable wipes prior to and after care of this patient according to [facility] infection prevention protocols. In order to obtain further information and compare any laboratory results/values, I have accessed old patient records. This information was pertinent in my medical decision making today. brayan Not available 10/08/2020 16:33:07 Plan of Treatment Reminders Order Date Submit Date Provider Last Modified By Organization Details Last Modified Time Details Appointments None recorded. Lab SARS CoV 2 RNA (COVID-19) , QL, business office technician-PCR, respirator y specimen 2020 [id number] [facility] (Centralized Electronic Ordering - All Locations), Patient Can Go To The Location Of Their Choice, [id number] 08:30:55 SARS CoV 2 RNA (COVID-19) , QL, business office technician-PCR, respirator y specimen 2020 IOANA [facility] (Centralized Electronic Ordering - All Locations), Patient Can Go To The Location Of Their Choice, [id number] 13:35:06 Referral None recorded. Procedures None recorded. Surgeries None recorded. Imaging None recorded. Medication Orders Tessalon Perles 100 mg capsule 2020 INTERFACE Not available 16:17:22 Patient TargetsNo targets recorded. Patient Instructions Encounter Date Encounter Id Patient Instructions Last Modified By Organization Details Last Modified Time 10/01/2020 [id number] What is coronavirus disease 2019? Coronavirus disease 2019 (COVID-19) is a respiratory illness that can spread from person to person. The virus that causes COVID-19 is a novel coronavirus that was first identified during an investigation into an outbreak in [facility]. Can I get COVID-19? Yes. COVID-19 is spreading from person to person in parts of the world. Risk of infection from the virus that causes COVID-19 is higher for people who are close contacts of someone known to have COVID-19, for example household members. Other people at higher risk for infection are those who live in or have recently been in an area with ongoing spread of COVID-19. How does COVID-19 spread? The virus that causes COVID-19 probably emerged from an animal source, but is now spreading from person to person. The virus is thought to spread mainly between people who are in close contact with one another (within about 6 feet) through respiratory droplets produced when an infected person coughs or sneezes. It also may be possible that a person can get COVID-19 by touching a surface or object that has the virus on it and then touching their own mouth, nose or possibly their eyes, but this is not thought to be the main way the virus spreads. What are the symptoms of COVID-19? Patients with COVID-19 have mild to severe respiratory illness with symptoms of: fever cough shortness of breath What are severe complications from this virus? Some patients have pneumonia in both lungs, multi-organ failure and in some cases . People can help protect themselves from respiratory illness with everyday preventative actions. Avoid close contact with people who are sick. Avoid touching your eyes, nose, and mouth with unwashed hands. Wash your hands often with soap and water for at least 20 seconds. Use an alcohol-based hand ad operations coordinator that contains at least 60% alcohol if soap and water are not available If you are sick, to keep from spreading respiratory illness to others, you should Stay home when you are sick. Cover your cough or sneeze with a tissue, then throw the tissue in the trash. Clean and disinfect frequently touched objects and surfaces. Is there a vaccine? There is currently no vaccine to protect against COVID-19. The best way to prevent infection is to take everyday preventive actions, like avoiding close contact with people who are sick and washing your hands often. Is there a treatment? There is no specific antiviral treatment for COVID-19. People with COVID-19 can seek medical care to help relieve symptoms. FOR MORE INFORMATION: [email or web address].GOV/[email or web address] Not available 10/01/2020 20:49:46 Reason for Referral None Reported. Results Created Date Observation Date Name Description Value Unit Range Abnormal Flag Note LastModifiedBy Organization Detail LastModifiedTime 10/01/19 21 10/04/2020 SARS CoV 2 RNA (COVI D-19) , QL, business office technician-P CR, respi rator y speci men covid-19, (RT)-PCR (neg) NEGAT SERGIO 2019- novel Coron aviru s (2019 -nCoV ) not detec carol by the qRT-P CR assay . If clini jan suspi cion for COVID -19 is high, parish nue to maint ain preca ution s and consi parisa repea t testi ng. Resul t repor carol to [facility]. This test has been autho rized by the FDA under an Emerg ency Use Autho rizat ion (EUA) for use by autho rized labor atori es. Test perfo rmed by Clini jan Resea [facility] Tenisha monte, ASHISH at the [facility] and Gareth mcclendon, [address] [place] [address] . CLIA ID: [id number] , CAP: [id number] 96. Medic al Direc tor: Sallie Genao, PhD FAC (NOTE ) The CRSP SARS- CoV-2 Real- time Rever se Trans cript ase (RT)- PCR Diagn ostic Assay is a real- time RT-PC R test inten ded for the quali tativ e detec tion of nucle ic acid from the SARS- CoV-2 in nasop haryn geal and oroph aryng eal swabs colle cted from indiv idual s who may have contr acted the virus . Testi ng is limit ed to the Clini jan Resea [facility] Tenisha lyn at the [facility] which is certi fied under the Clini jan Labor atory Impro vemen t Amend ments of 1987 (CLIA ), 42 U.S.C . ?263a , to perfo rm high compl exity tests . = Posit sergio resul ts are indic ative of activ e infec tion with SARS- CoV-2 but do not rule out bacte rial infec tion or co-in fecti on with other virus es. The agent detec carol may not be the defin ite cause of disea se. In addit ion, nucle ic acid detec tion can persi st follo wing clear ance of activ e viral repli catio n. Labor atori es withi n the Unite d State s and its antwon jazmyne s are requi red to repor t all posit sergio resul ts to the appro priat e publi c healt h autho ritie s. = Negat sergio resul ts do not precl ude SARS- CoV-2 infec tion and shoul d not be used as the sole basis for patie nt treat ment or other patie nt manag ement decis ions. Negat sergio resul ts must be combi misa with clini jan obser vatio ns, patie nt histo ry, and epide miolo gical infor matio n. Not Available [facility] (Centralized Electronic Ordering - All Locations) Patient Can Go To The Location Of Their Choice, [id number] 10/04/2020 13:35:06 10/08/19 21 10/08/2020 SARS CoV 2 RNA, QL probe , unspe cifie d speci men covid-19 PCR specimen source NASAL Not Available [facility] (Centralized Electronic Ordering - All Locations) Patient Can Go To The Location Of Their Choice, [id number] 10/09/2020 14:27:28 10/08/1910/09/2020 SARS CoV 2 RNA, QL probe , unspe cifie d speci men covid-19 PCR result (neg) abnormal POSIT SERGIO Posit sergio for detec tion of 2019- novel Coron aviru s (2018nCoV ) by real- time RT-PC R. Resul t repor carol to [facility]. To preve nt error s in diagn osis, test resul ts shoul d be inter prete d in the robby xt of clini jan findi ngs and other labor atory data. Rare polym orphi sms exist that could lead to false -nega tive or false -posi tive resul ts. If resul ts obtai misa do not match the clini jan findi ngs, addit ional testi ng shoul d be consi dered . This test has been autho rized by the FDA under an Emerg ency Use Autho rizat ion (EUA) for use by autho rized labor atori es. Testi ng perfo rmed by real time PCR utili [facility] [employer] SARS- CoV-2 test. Not Available [facility] (Centralized Electronic Ordering - All Locations) Patient Can Go To The Location Of Their Choice, [id number] 10/09/2020 14:27:28 Result Notes None recorded. Procedures Surgical History Date Name Laterality Status Provider Name and Address Organization Details Recorded Time 10/01/19 21 Medication Review completed Courtney Wren NP [address] [place] [address] [place], [place], [address], [place] [facility] 10/01/2020 20:49:38 Imaging Results None recorded. Procedure Notes None recorded. Medical Equipment None Reported. Allergies No known drug allergies Medications Name Sig Start Date Stop Date Status Note LastModified by Organization Details LastModified Time lisinopril 20 mg tablet TK 1 T PO D 10/01 completed Not Available Not Available Not Available glipizide 10 mg tablet TAKE 1 TABLET BY MOUTH TWICE DAILY BEFORE MEALS active Not Available Not Available No t Available isosorbide mononitrate ER 30 mg tablet,exte nded release 24 hr TK 1 T PO D IN THE MORNING 10/01 completed Not Available Not Available Not Available meclizine 12.5 mg tablet TK 1 T PO D 10/01 completed Not Available Not Available Not Available aspirin 81 mg tablet,yun yed release TK 1 T PO QAM active Not Available Not Available No t Available levothyroxi ne 75 mcg tablet TAKE 1 TABLET BY MOUTH EVERY DAY active Not Available Not Available No t Available pravastatin 80 mg tablet TAKE 1 TABLET BY MOUTH EVERY NIGHT AT BEDTIME active Not Available Not Available No t Available prednisolon e acetate 1 % eye drops,suspe nsion INT 1 GTT IN OU BID UTD active Not Available Not Available No t Available benzonatate 100 mg capsule TAKE 1 CAPSULE BY MOUTH THREE TIMES DAILY FOR 10 DAYS NEEDED active Not Available Not Available No t Available metformin 1,000 mg tablet TAKE 1 TABLET BY MOUTH TWICE DAILY WITH THE MORNING AND EVENING MEAL active Not Available Not Available No t Available triamcinolo ne acetonide 0.1 % topical ointment ARIEL A THIN LAYER AA BID active Not Available Not Available No t Available omeprazole 20 mg capsule,del ayed release TK 1 C PO QAM BEFORE BREAKFAST active Not Available Not Available No t Available lisinopril 40 mg tablet TAKE 1 TABLET BY MOUTH DAILY active Not Available Not Available No t Available loratadine 10 mg tablet TK 1 T PO D active Not Available Not Available No t Available Mapap Arthritis Pain 650 mg tablet,exte nded release TK 1 T PO Q 8 H PRN active Not Available Not Available No t Available OneTouch Ultra Blue Test Strip USE BID active Not Available Not Available N ot Available OneTouch Delica Plus Lancet 33 gauge USE BID active Not Available Not Available Not Available Fluad Quad (6 5yr up)(PF) 60 mcg (15 mcg x 4)/0.5mL IM syringe ADM 0.5ML IM UTD active Not Available Not Available No t Available Vitals Date Recorded Heart rate Body temperature Respiratory rate Oxygen saturation Oxygen saturation in Arterial blood by Pulse oximetry Systolic blood pressure Diastolic blood pressure Provider Name and Address Organization Details Last Updated DateTime 1 83 /min 97.2 [degF] 18 /min 99 % 99 % 130 mm[Hg] 70 mm[Hg] Not Available [facility] 1 20:52:32 Date Recorded Oxygen saturation Oxygen saturation in Arterial blood by Pulse oximetry Heart rate Body temperature Respiratory rate Systolic blood pressure Diastolic blood pressure Provider Name and Address Organization Details Last Updated DateTime 1 100 % 100 % 84 /min 98 [degF] 16 /min 138 mm[Hg] 62 mm[Hg] Not Available [facility] 1 16:00:17 Social History None recorded. Functional Status None recorded. Mental Status None recorded. Family History Relationship Description Onset Age of this Age Resolved Age Notes LastModified by Organization Details LastModified Time Father Diabetes mellitus Not available 2020 20:47:08 Medical History Condition Response Diabetes Y Cancer N Stroke N Asthma N COPD N High Cholesterol Y Hypertension Y Kidney Disease Y Gynecological HistoryNo gynecological history recorded. Obstetrics History GPAL:G 0 P 0 0 0 0 Past Encounters Encounter ID Performer Location Encounter Start Date Encounter Closed Date Diagnosis/Indication Diagnosis SNOMED-CT Code Diagnosis ICD10 Code Diagnosis Note [id number] Courtney Wren NP [facility] [address] [place] [address] 10/01/2020 20:41:04 10/03/2020 21:22:15 Exposure to SARS-CoV-2 209579580 Z20.822 Diabetes mellitus 465023 09 E11.9 Exposure t o communicable disease 454209723 Z20.828 [id number] TORIBIO DOZIER [facility] [address] [place] [address] 10/08/2020 15:56:27 10/12/2020 01:34:42 Suspected COVID-19 580263370 Z03.89 Exposure t o communicable disease 224552508 Z20.822 Viral uppe r respiratory tract infection 935836548 J06.9 Health Concerns Section Related Observation LastModified by Organization Detai ls LastModified Time None Recorded Concern Status LastModified by Organization Details LastModified Time None Recorded Advance Directives Directive None Recorded Payers Encounter Date Sequence Insurance Name Policy Number Policy Jimenez Covered Member ID Jimenez Member ID Guarantor Name 10/01/2020 1 [facility] (MEDICARE REPLACEMENT HMO) Genevieve Lugo [id number] Genevieve Lugo 10/01/2020 2 [place] [facility] Genevieve Senior Lugo [id number] Genevieve Lugo 10/08/2020 1 [facility] (MEDICARE REPLACEMENT HMO) Genevieve Senior Lugo [id number] Genevieve Lugo 10/08/2020 2 [place] [facility] Genevieve Senior Lugo [id number] Genevieve Lugo Notes Date Note Type Note Provider Name and Address Organization Details Recorded Time 10/01/2020 text/html This is a 75yo female who is new to with a PMHx of DM, HTN/HLD, CKD, hypothyroidism, arthritis, GERD, Takotsubo syndrome and CHF being seen for diarrhea x 24hrs. She reports it has resolved, she has had no N/V. No fevers, chest pain, cough or trouble breathing. She is still able to taste/smell. She was exposed to a neice with Covid 19 and would like to be tested. Courtney Wren NP [address] [place] [address], [phone], [place] [facility] 10/01/2020 21:07:21 10/08/2020 text/html 75-year-old female with past medical history significant for diabetes, hyperlipidemia, hypertension, CKD, hypothyroidism, osteoarthritis, takot subo syndrome, GERD, and CHF, known to [facility] but new to this provider, who presents for complaints of cough after recent COVID exposure. Patient's son and family tested positive for COVID and the patient was exposed to them on Sunday. The patient states that 3 days ago she developed a dry cough and scratchy throat with a hoarse voice as well as bilateral ear pain. She denies fever, chills, shortness of breath, chest pain, loss of taste or smell. She reports a good appetite and no difficulty with ambulation or voiding. TORIBIO DOZIER [address], [place], [address], [place] [facility] 10/08/2020 16:33:37 OBGyn Episode No OBEpisode recorded.
--- OUTSIDE RECORDS SUMMARY | 2024-11-28 12:49 | XMS_ITS | Encounter Summary ---
Author Organization [employer] Address [address] [facility] [address] [place] [address] Care Team Providers Care Electric M[employer] Name Role Phone Vanessa Pettit MD Primary Care Provider [phone] Encounter Details Date Type Department Care Team ([facility] st Contact Info) Description 11/14/2024 Orders Only [facility] [address] [place] [address] Dennis Carias MD [address] [place] [address] Type 2 diabetes mellitus with stage 3 chronic kidney disease, without long-term current use of insulin, unspecified whether stage 3a or 3b CKD (CMS/HCC) Social History Tobacco Use Types Packs/Day Years [...] Description 12/19/2024 9:15 AM EDT Office Visit [facility] [address] [place] [address] Vanessa Pettit MD [address] [place] [address] documented as of this encounter Goals Goal Patient Goal Type Associated Problems Recent Progress Patient-Stated? Author Blood Pressure < 140/90 Blood Pressure 182/84(11/28 10:08 AM EDT) No Jaren Martines, PharmD Hemoglobin A1c < 8 Result Component 7.1(05/15/20 11:19 AM EDT) No Jaren Martines, PharmD Note: Age 77, multiple comorbidities documented as of this encounter Visit Diagnoses Diagnosis Type 2 diabetes mellitus with stage 3 chronic kidney disease, without long-term current use of insulin, unspecified whether stage 3a or 3b CKD (CMS/HCC) documented in this encounter Additional Health Concerns Assessment Noted Time PHQ-9 Depression Total Score: 4 10/02/19 25 10:43 AM EST documented as of this encounter Care Teams [employer] Relationship Specialty Start Date End Date Vanessa Pettit MD [address] [place] [id number] PCP - General Family Medicine 08/29/12 documented as of this encounter
--- OUTSIDE RECORDS SUMMARY | 2024-11-28 12:49 | XMS_ITS | Encounter Summary ---
Author Organization [employer] Address [address] [facility] 7t [place] [address] Care Team Providers Care Railroad Firer/Fireman Name Role Phone Chris Pettit MD Primary Care Provider [phone] Reason for Visit * Reason Onset Date Comments Nurse Triage 11/14/2024 Encounter Details Date Type Department Care Team ([facility] st Contact Info) Description 11/14/2024 Telephone [facility] MEDICINE [address] [place] [address] Chris Pettit MD [address] [place] [address] Nurse Triage Social History Tobacco Use Types Packs/Day Years [...] AM EDT documented as of this encounter Miscellaneous Notes * Addendum Note - Chris Pettit MD - 11/18/2024 10:52 AM ESTAddended by: CHRIS PETTIT on: 11/18/2024 10:52 AM Modules accepted: Orders * Addendum Note - Tylor Saravia RN - 11/14/2024 3:36 PM ESTAddended by: TYLOR SARAVIA on: 11/14/2024 03:36 PM Modules accepted: Orders * Telephone Encounter - Tylor Saravia RN - 11/14/2024 3:24 PM EST No connie scratcher needed as this blog writer speaks [place]ian. Call returned to Genevieve Lugo to triage below. Spoke with patient who gave verbal consent to speak with DISEASE EDUCATION SPECIALIST. Reporting the following fasting blood sugars. 10/29- 180 11/03- 249 11/05- 281 11/12- 256 11/14-263 Reports pt has been without Trulicity x 4 weeks. Pt is taking oral medications for DM daily. Endorses pt having dry mouth and fatigue. No urinary frequency MEDEIROS or confusion. Current BS is 251mg/dl, had a meal 2 hours ago. Pt had broccoli and chicken stew. Advised to limit carbs, increase water. [place] refill request for Trulicity to Dr. Carias as PCP not in office this PM. Booked for PCP follow up next week as last OV in July 2024. Reviewed home care advise, ER precautions and reasons to call back. Protocol Used: Diabetes - High Blood Sugar (Adult) Protocol-Based Disposition: Discuss with PCP and Callback by Nurse Today Video visit offer not recorded Positive Triage Question: * Caller has NON-URGENT medication or insulin device (e.g., pump, continuous monitoring) question and triager unable to answer question * All higher-acuity triage questions were negative Care Advice Discussed: * High Blood Sugar (Hyperglycemia) * Treatment - Liquids * Diabetes Pills * Measure and Record Your Blood Glucose * Daily Blood Glucose Goals * Reasons To Call Back - Blood glucose over 300 mg/dL (16.7 mmol/L), two or more times in a row. - Urine ketones become moderate or large (or more than 1+); if you check blood ketones, blood ketone test is over 1.4 mmol/L - Vomiting lasting over 4 hours or unable to drink any fluids - Rapid breathing occurs - You have more questions - You become worse * Telephone Encounter - Tylor Saravia RN - 11/14/2024 3:14 PM EST Call attempted to patient x 3. No answer, LVM to return call to [facility] triage line [phone]. * Telephone Encounter - Alina Barton - 11/14/2024 3:05 PM EST Symptom: High Blood Sugar - Caller Reports Outcome: Talk to a nurse or provider within 15 minutes Reason: Known blood sugar above 300 The caller accepted this outcome. [phone] documented in this encounter Plan of Treatment Upcoming Encounters Date Type Department Care Team (Late st Contact Info) Description 12/19/2024 9:15 AM EDT Office Visit [facility] CHC MED & PEDS [address] [place] [address] Chris Pettit MD [address] [place] [address] documented as of this encounter Goals Goal [...] documented as of this encounter Care Teams Railroad Firer/Fireman Relationship Specialty Start Date End Date Chris Pettit MD [address] [place] [id number] PCP - General Family Medicine 08/29/12 documented as of this encounter
--- OUTSIDE RECORDS SUMMARY | 2024-11-28 12:49 | XMS_ITS | Encounter Summary ---
Author Organization [employer] Address [address] [facility] 7 [place] [address] Care Team Providers Care Lime Burner Name Role Phone Vanessa Pettit MD Primary Care Provider [phone] Encounter Details Date Type Department Care Team ([facility] Contact Info) Description 11/28/2024 10:40 AM EDT Office Visit [facility] CHC MED & PEDS [address] [place], [place] [id number] Emily Jacobson MD [address] [place] [address] Essential hypertension (Primary Dx); Acquired hypothyroidism; Weight loss Social History Tobacco Use Types Packs/Day Years [...] AM EDT documented as of this encounter Last Filed Vital Signs Vital Sign Reading [...] Mass Index 24.04 11/28/2024 10:08 AM EDT documented in this encounter Progress Notes * Emily Jacobson MD - 11/28/2024 10:40 AM EDT Subjective Patient ID: Genevieve Lugo is a 79 y.o. Genevieve is an 79-year-old female patient of Dr. Pettit with type [address] MANAGER for unknown reason. She did not take her blood pressure medications or any of her meds this morning yet for whichher blood pressure is elevated in office today. She feels well but ROAD MANAGER is worried about her appetite. She has lost 6 pounds her last visit in September when I compare the weights. She saw PCP in July 2024 who ordered blood work but patient still has not got them drawn. Patient states compliant with all meds including Trulicity 1.[address] ROAD MANAGER cooks breakfast and lunch for her and states thather kids to visit her every night but she does not know if she eats dinner or not. Patient denies diarrhea or bloody stools. Review of Systems Constitutional: Positive for unexpected weight change. Negative for activity change, chills and fever. Respiratory: Negative for cough, shortness of breath and wheezing. Cardiovascular: Negative for chest pain, palpitations and leg swelling. Gastrointestinal: Negative for abdominal pain and blood in stool. Endocrine: Negative for polydipsia and polyuria. Genitourinary: Negative for decreased urine volume, difficulty urinating, dysuria and hematuria. Musculoskeletal: Negative for arthralgias and gait problem. Skin: Negative for color change and rash. Neurological: Negative for dizziness and headaches. Hematological: Negative for adenopathy. Psychiatric/Behavioral: Negative for dysphoric mood, hallucinations, sleep disturbance and suicidalideas. The patient is not nervous/anxious. Objective BP (!) 182/84 (BP Location: Left arm, Patient Position: Sitting, BP Cuff Size: Adult) Pulse 70 Temp 96.7 ??F (35.9 ??C) (Oral) Resp 16 Ht 4' 10 (1.473 m) Wt 115 lb (52.2 kg) SpO2 98% BMI 24.04 kg/m?? Physical Exam Vitals reviewed. Constitutional: General: She is not in acute distress. Appearance: Normal appearance. HENT: Head: Normocephalic. Nose: No congestion. Mouth/Throat: Mouth: Mucous membranes are moist. Eyes: General: No scleral icterus. Conjunctiva/sclera: Conjunctivae normal. Pupils: Pupils are equal, round, and reactive to light. Cardiovascular: Rate and Rhythm: Normal rate and regular rhythm. Heart sounds: No murmur heard. Pulmonary: Effort: Pulmonary effort is normal. No respiratory distress. Breath sounds: Normal breath sounds. No wheezing or rales. Abdominal: Palpations: Abdomen is soft. There is no mass. Tenderness: There is no abdominal tenderness. Musculoskeletal: Cervical back: Normal range of motion. Right lower leg: No edema. Left lower leg: No edema. Lymphadenopathy: Head: Right side of head: No submental, submandibular, preauricular or posterior auricular adenopathy. Left side of head: No submental, submandibular, preauricular or posterior auricular adenopathy. Cervical: No cervical adenopathy. Upper Body: Right upper body: No supraclavicular or axillary adenopathy. Left upper body: No supraclavicular or axillary adenopathy. Lower Body: No right inguinal adenopathy. No left inguinal adenopathy. Neurological: Mental Status: She is oriented to person, place, and time. Mental status is at baseline. Psychiatric: Mood and Affect: Mood normal. Thought Content: Thought content normal. Assessment/Plan Diagnoses and all orders for this visit: Essential hypertension Comments: BP elevated but patient did not take any of her meds today yet. Advised to take them IWONA and take them before her next appointment with PCP as well. Acquired hypothyroidism Comments: Maybe her levothyroxine dose is too high. Check TFTs today and adjust dose if needed. Weight loss Comments: Walked patient to the lab today so her blood work could be drawn and scheduled her for close follow-up with PCP. PE exam today reassuring. No lymphadenopathy found on exam .her last A1c was 7.1 so unlikely that her weight loss is from uncontrolled DM but hopefully her lab results will help with etiology. Also advised ROAD MANAGER to inform kids of patient about this. documented in this encounter Plan of Treatment Upcoming Encounters Date Type Department Care Team (Late st Contact Info) Description 12/19/2024 9:15 AM EDT Office Visit [facility] MED & PEDS [address] [place] [address] Vanessa Pettit MD [address] [place] [address] documented as of this encounter Goals Goal Patient Goal Type Associated Problems Recent Progress Patient-Stated? Author Blood Pressure < 140/90 Blood Pressure 182/84(11/28 10:08 AM EDT) No Jaren Martines, PharmBubba Hemoglobin A1c < 8 Result Component 7.1(05/15/20 24 11:19 AM EDT) No Jaren Martines PharmD Note: Age 77, multiple comorbidities documented as of this encounter Visit Diagnoses Diagnosis Essential hypertension- Primary Unspecified essential hypertension Acquired hypothyroidism Unspecified hypothyroidism Weight loss Loss of weight documented in this encounter Additional Health Concerns Assessment Noted Time PHQ-9 Depression Total Score: 4 10/02/19 25 10:43 AM EST documented as of this encounter Care Teams Lime Burner Relationship Specialty Start Date End Date Vanessa Pettit MD [address] [place] [id number] PCP - General Family Medicine 08/29/12 documented as of this encounter
--- OUTSIDE RECORDS SUMMARY | 2024-11-28 12:49 | XMS_ITS | Encounter Summary ---
Author Organization [employer] Address [address] [facility] 7t [place] [address] Care Team Providers Care Hand Hardener Name Role Phone Vanessa Pettit MD Primary Care Provider Reason for Visit * Reason Onset Date Comments Med Refill 11/14/2024 Encounter Details Date Type Department Care Team ([facility] st Contact Info) Description 11/14/2024 Refill [facility] MEDICINE [address] [place] [address] Vanessa Pettit MD [address] [place] [address] Type 2 diabetes mellitus with stage 3 [...] as of this encounter Miscellaneous Notes * Telephone Encounter - Alina Barton - 11/14/2024 3:02 PM EST TC from pt requesting medication refill. Medications needing refill : Trulicity 0.75 MG/0.5ML solution pen-injector To be sent to: [facility] Pharmacy documented in this encounter Plan of Treatment Upcoming Encounters Date Type Department Care Team (Late st Contact Info) Description 12/19/2024 9:15 AM EDT Office Visit [facility] MED & PEDS [address] [facility] [place] [address] Vanessa Pettit MD [address] [place] [address] documented as of this encounter Goals Goal Patient Goal Type Associated Problems Recent Progress Patient-Stated? Author Blood Pressure < 140/90 Blood Pressure 182/84(11/28 10:08 AM EDT) No Jaren aMrtines, PharmD Hemoglobin A1c < 8 Result Component [...] documented as of this encounter Care Teams Hand Hardener Relationship Specialty Start Date End Date Vanessa Pettit MD [address] [place] [phone] PCP - General Family Medicine 08/29/12 documented as of this encounter
--- OUTSIDE RECORDS SUMMARY | 2024-11-28 12:49 | XMS_ITS | Encounter Summary ---
Author Organization [employer] Address [address] [facility] 7t [place] [address] Care Team Providers Care Synthetic Chemist Name Role Phone Vanessa Pettit MD Primary Care Provider [phone] Reason for Visit * Reason Onset Date Comments new script 03/15/2023 Encounter Details Date Type Department Care Team ([facility] st Contact Info) Description 03/15/[address] [facility] MEDICINE [address] [place] [address] Vanessa Pettit MD [address] [place] [phone] new script Social History Tobacco Use Types Packs/Day Years [...] encounter Miscellaneous Notes * Telephone Encounter - Isis Orellana - 03/15/2023 10:58 AM EDT TC from Amy WINN of pt requesting a new script for Amlodipine 10mg. By appt on 03/14 per notes medication Amlodipine from 5mg increased to 10mg Limnology Teacher see a script on med list but its wrong. PCP DR. Pettit documented in this encounter Plan of Treatment Upcoming Encounters Date Type Department Care Team (Late st Contact Info) Description 12/19/2024 9:15 AM EDT Office Visit [facility] MED & PEDS [address] [place] [address] Vanessa Pettit MD [address] [place] [address] documented as of this encounter Goals Goal [...] on filedocumented in this encounter Care Teams Synthetic Chemist Relationship Specialty Start Date End Date Vanessa Pettit MD [address] [place] [phone] PCP - General Family Medicine 08/29/12 documented as of this encounter
--- OUTSIDE RECORDS SUMMARY | 2024-11-28 12:49 | XMS_ITS | Encounter Summary ---
Author Organization [employer] Address [address] [facility] 7t [place] [address] Care Team Providers Care Registered Nurse Float Pool Name Role Phone Vanessa Pettit MD Primary Care Provider Encounter Details Date Type Department Care Team (Late st Contact Info) Description 01/22/2023 Orders Only [facility] MED & PEDS [address] [place] [address] Jaren Martines, PharmD Social History Tobacco Use Types Packs/Day Years [...] suspected to have Coronavirus/COVID-19? No / Unsure 01/23/2023 11:38 AM EDT documented as of this encounter Plan of Treatment Upcoming Encounters Date Type Department Care Team (Late st Contact Info) Description 12/19/2024 9:15 AM EDT Office Visit [facility] MED & PEDS [address] [place] [address] Vanessa Pettit MD [address] [place] [address] documented as of this encounter Goals Goal [...] on filedocumented in this encounter Care Teams Registered Nurse Float Pool Relationship Specialty Start Date End Date Vanessa Pettit MD [address] [place] [phone] PCP - General Family Medicine 08/29/12 documented as of this encounter
--- OUTSIDE RECORDS SUMMARY | 2024-11-28 12:49 | XMS_ITS | Encounter Summary ---
Author Organization [employer] Address [address] [facility] 7t [place] [address] Care Team Providers Care Supervisor Computer Operations Name Role Phone Vanessa Pettit MD Primary Care Provider [phone] Encounter Details Date Type Department Care Team (Late Contact Info) Description 11/17/2022 Orders Only [facility] CHC MED & PEDS [address] [place] [address] Vanessa Pettit MD [address] [place] [address] Stage 3 chronic kidney disease, unspecified whether stage 3a or 3b CKD (CMS/HCC) (Primary Dx) Social History Tobacco Use Types [...] suspected to have Coronavirus/COVID-19? No / Unsure 11/16/2022 9:09 AM EST documented as of this encounter Plan of Treatment Upcoming Encounters Date Type Department Care Team (Late Contact Info) Description 12/19/2024 9:15 AM EDT Office Visit [facility] MED & PEDS [address] [place] [address] Vanessa Pettit MD [address] [place] [phone] documented as of this encounter Goals Goal Patient Goal Type Associated Problems Recent Progress Patient-Stated? Author Blood Pressure < 140/90 Blood Pressure 182/84(11/28 10:08 AM EDT) No Jaren Martines, PharmD Hemoglobin A1c < 8 Result Component 7.1(05/15/20 11:19 AM EDT) No Jaren Martines, PharmD Note: Age 77, multiple comorbidities documented as of this encounter Visit Diagnoses Diagnosis Stage 3 chronic kidney disease, unspecified whether stage 3a or 3b CKD (CMS/HCC)- Primary documented in this encounter Care Teams Supervisor Computer Operations Relationship Specialty Start Date End Date Vanessa Pettit MD [address] [place] [phone] PCP - General Family Medicine 08/29/12 documented as of this encounter
[2024-11-28 15:04] LABS: Estimated Average Glucose 197 mg/dL; Hemoglobin A1c % 8.5 % (<6.0); Total Hemoglobin (HGBA1C) 3367.1081 umol/L
[2024-11-28 17:36] LABS: Alanine Aminotransferase 18 U/L (0-31); Albumin Level 4.2 g/dL (3.5-5.0); Alkaline Phosphatase 76 U/L (39-117); Anion Gap 16 (12-20); Aspartate Amino Transferase 26 U/L (5-31); Bilirubin Direct < 0.2 mg/dL (0.0-0.5); Bilirubin Total 0.2 mg/dL (0.0-1.0); Blood Urea Nitrogen 22 mg/dL (9-16); Calcium 9.6 mg/dL (8.4-10.2); Carbon Dioxide 24 mmol/L (22-29); Chloride 104 mmol/L (96-108); Cholesterol 197 mg/dL (<200); Estimated Glomerular Filt Rate 57; Glucose Random 137 mg/dL (60-115); HDL Cholesterol 63 mg/dL (>40); LDL Cholesterol Calculated 115 mg/dL (<100); Potassium 4.1 mmol/L (3.3-5.1); Sodium 140 mmol/L (135-145); TSH reflex Free T4 1.84 uIU/mL (0.32-4.0); Total Protein 7.6 g/dL (6.5-8.0); Triglycerides 99 mg/dL (<150)
== END 2024-11-28 11:08 | disposition home or self-care (01) ==
LOC: HO.CHCLDS 11:07
PROVIDERS: Visit Provider Student in an Organized Health Care Education/Training Program
DX: I12.9 Hypertensive chronic kidney disease with stage 1 through stage 4 chronic kidney disease, or unspecified chronic kidney disease (principal); E11.22 Type 2 diabetes mellitus with diabetic chronic kidney disease; N18.30 Chronic kidney disease, stage 3 unspecified; E03.9 Hypothyroidism, unspecified
CPT/HCPCS: 36415; 80048; 80061; 80076; 83036; 84443

== ENCOUNTER 2025-08-26 15:55 | Outpatient (REF) | payer OTHER, SELFPAY ==
--- OUTSIDE RECORDS SUMMARY | 2025-08-26 14:20 | XMS_ITS | Encounter Summary ---
Author Organization [employer] Address [address] [place] [address] 7 [place] [address] Care Team Providers Care Orthotic Technician Name Role Phone Wayne Zee CNP Primary Care Provider [phone] Reason for Referral * Consultation (Routine) - Authorized Specialty Diagnoses / Procedures Referred By Criselda t Referred To Contact Pharmacy Diagnoses Type 2 diabetes mellitus with stage 3 chronic kidney disease, without long-term current use of insulin, unspecified whether stage 3a or 3b CKD (HCC) Essential hypertension Dennis Carias MD [address] [place] [address] Phone: tel: fax: Referral ID Status Reason Start Date Expiration Date Visits Requested Visits Authorized [id number] Authorized Consult and Treat 08/26/2025 08/26/2026 6 6 Reason for Visit * Reason Comments right sided neck pain Encounter Details Date Type Department Care Team ([facility] st Contact Info) Description 08/26/2025 2:20 PM EST Office Visit [facility] MED & PEDS [address] [place] [address] Dennis Carias MD [address] [place] [address] Muscle spasm (Primary Dx); Type 2 diabetes mellitus with stage 3 chronic kidney disease, without long-term current use of insulin, unspecified whether stage 3a or 3b CKD (HCC); Essential hypertension; Other urinary incontinence Social History Tobacco Use Types Packs/Day Years [...] your housing situation today? I have shawn jai 01/11/[address] you li [...] Sign Reading Time Taken Comments Blood Pressure 143/72 08/26/2025 2:33 PM EST Pulse 81 08/26/2025 2:33 PM EST Temperature 36.8 C (98.2 F) 08/26/2025 2:33 PM EST Respiratory Rate 20 08/26/2025 2:33 PM EST Oxygen Saturation 98% 08/26/2025 2:33 PM EST Inhaled Oxygen Concentration - - Weight 53.5 kg (118 lb) 08/26/2025 2:33 PM EST Height 147.3 cm (4' 10 ) 08/26/2025 2:33 PM EST Body Mass Index 24.66 08/26/2025 2:33 PM EST documented in this encounter Progress Notes * Dennis Carias MD - 08/26/2025 2:20 PM EST SUBJECTIVE Genevieve Lugo is a 80 y.o. female who presents for right sided neck pain. HPI Genevieve Lugo, 80-year-old female - Neck pain for approximately 1.5 months, worsening in the past 2 weeks - Mobic 7.5 mg prescribed on August 04, 2025, not effective for pain - Muscle spasms reported - Four falls occurred prior to visit. No reported dizziness/palpitations. - Lives alone with caregivers visiting - Blood sugar and blood pressure reported as not well controlled by family - Urinary incontinence present, described as leaking urine with urgency, wears diapers Problem List[1] Allergies[2] Medications Ordered Prior to Encounter[3] Review of Systems Constitutional: Negative for appetite change, chills and diaphoresis. Eyes: Negative for photophobia, pain and redness. Respiratory: Negative for cough, choking and shortness of breath. Cardiovascular: Negative for chest pain, palpitations and leg swelling. Musculoskeletal: Positive for myalgias and neck pain. Neurological: Negative for dizziness. History of falls OBJECTIVE Vitals: 08/26/25 1433 BP: (!) 143/72 BP Location: Left arm Patient Position: Sitting BP Cuff Size: Adult Pulse: 81 Resp: 20 Temp: 98.2 ??F (36.8 ??C) TempSrc: Oral SpO2: 98% Weight: 118 lb (53.5 kg) Height: 4' 10 (1.473 m) Physical Exam Constitutional: General: She is not in acute distress. Appearance: Normal appearance. She is not ill-appearing, toxic-appearing or diaphoretic. Pulmonary: Effort: Pulmonary effort is normal. Musculoskeletal: Cervical back: Spasms and tenderness present. Neurological: Mental Status: She is alert. Assessment/Plan Assessment/Plan Diagnoses and all orders for this visit: Muscle spasm - tiZANidine (Zanaflex) 2 MG tablet; Take 1 tablet (2 mg) by mouth before breakfast and before evening meal. Type 2 diabetes mellitus with stage 3 chronic kidney disease, without long-term current use of insulin, unspecified whether stage 3a or 3b CKD ([facility]) - Referral to Pharmacy CDTM - Urinalysis, Complete, with Reflex to Culture; Future Essential hypertension - Referral to Pharmacy CDTM - Blood Pressure kit; To check the BP daily Other urinary incontinence - Urinalysis, Complete, with Reflex to Culture; Future Muscle spasm: - Muscle spasms present, possibly related to sleep position or pillow quality. - Adjusted muscle relaxer. Recommended use of warm compress to affected area twice daily. Advised to check pillow quality and sleep position. - Risks and side effects: Advised to avoid gupta when applying heat. Type 2 diabetes mellitus with stage 3 chronic kidney disease, without long-term current use of insulin, unspecified whether stage 3a or 3b CKD ([facility]): - Diabetes management suboptimal; blood glucose levels not well controlled. - Referred to clinical pharmacist for diabetes management review. Provided paper to record blood glucose and blood pressure values. Requested caregiver assistance in monitoring and recording values. Follow-up appointment to review numbers with pharmacist. Essential hypertension: - Blood pressure control requires monitoring. - Provided blood pressure machine for home monitoring. Instructed to record blood pressure values on provided paper for review. Other urinary incontinence: - Urinary incontinence with urgency; possible etiologies include diabetes or urinary tract infection. - Ordered urinalysis to evaluate for urinary tract infection. Will consider further management based on results. Given her history of falls. Pt might benefit from getting more SENIOR APPLICATIONS ARCHITECT hours to assist w/ her ADL at home. This note was drafted using Ambient (AI) technology. The patient/patient's guardian has been informed and has consented to the use of this technology: Yes [1] Patient Active Problem List Diagnosis Acquired trigger finger Allergic rhinitis Chronic kidney disease (CKD) Diabetes mellitus (HCC) Essential hypertension Hypertensive kidney disease, stage III (CMS/HCC) (HCC) Pain in limb Hypercholesterolemia Hypothyroidism [2] No Known Allergies [3] Current Outpatient Medications on File Prior to Visit Medication Sig Dispense Refill acetaminophen (Tylenol 8 Hour) 650 MG ER tablet take 1 Tablet by oral route every 8 hours as needed amLODIPine (Norvasc) 10 MG tablet TAKE ONE TABLET EVERY MORNING 90 tablet 3 Aspirin Adult Low Strength 81 MG EC tablet TAKE ONE TABLET EVERY MORNING 30 tablet 11 atorvastatin (Lipitor) 40 MG tablet Take 40 mg by mouth at bedtime. Blood Glucose Monitoring Suppl (ONE TOUCH ULTRA 2) w/Device kit TEST BLOOD SUGAR TWICE DAILY 1 kit 2 carvedilol (Coreg) 6.25 MG tablet TAKE ONE TABLET IN THE MORNING AND EVENING WITH FOOD 60 tablet 3 Dulaglutide (Trulicity) 1.5 MG/0.5ML solution auto-injector Inject 1.5 mg under the skin 1 (one) time per week. 2 mL 3 hydrALAZINE (Apresoline) 25 MG tablet TAKE ONE TABLET EVERY MORNING 30 tablet 11 isosorbide mononitrate ER (Imdur) 30 MG 24 hr tablet Take 1 tablet by mouth in the morning. Jardiance 25 MG TAKE ONE TABLET EVERY MORNING BEFORE BREAKFAST 30 tablet 3 Lancet Devices (Autolet) lancing device 1 each by Other route if needed. Use as instructed Lancets (Huaxia Dairy FarmTouch Delica Plus [id number]) misc TEST BLOOD SUGAR TWICE DAILY 100 each 11 levothyroxine (Synthroid, Levoxyl) 75 MCG tablet TAKE ONE TABLET EVERY MORNING 90 tablet 0 lidocaine-prilocaine (Emla) 2.5-2.5 % cream Apply topically 2 times daily. 30 g 11 Lifitegrast (Xiidra) 5 % solution Administer 1 drop into affected eye(s) every 12 (twelve) hours. loratadine (Claritin) 10 MG tablet TAKE ONE TABLET EVERY MORNING 30 tablet 3 meloxicam (Mobic) 7.5 MG tablet Take 1 tablet (7.5 mg) by mouth Once per day. 60 tablet 2 metFORMIN (Glucophage) 500 MG tablet TAKE ONE TABLET TWICE DAILY IN THE MORNING AND AT BEDTIME 60 tablet 3 mirtazapine (Remeron) 15 MG tablet Take 1 tablet (15 mg) by mouth at bedtime. 30 tablet 3 omeprazole (PriLOSEC) [address] capsule TAKE ONE CAPSULE EVERY MORNING BEFORE BREAKFAST 90 capsule 3 OneTouch Ultra Test test strip TEST BLOOD SUGAR TWICE DAILY 100 strip 11 traZODone (Desyrel) 50 MG tablet TAKE ONE TABLET EVERY NIGHT AT BEDTIME 30 tablet 11 Trulicity 1.5 MG/0.5ML solution auto-injector INJECT ONE PEN (=1.5MG) SUBCUTANEOUSLY ONCE A WEEK ASDIRECTED 2 mL 3 [DISCONTINUED] omeprazole (PriLOSEC) [address] capsule TAKE ONE CAPSULE EVERY MORNING BEFORE BREAKFAST 90 capsule 3 No current facility-administered medications on file prior to visit. documented in this encounter Plan of Treatment Upcoming Encounters Date Type Department Care Team (Late st Contact Info) Description 10/15/2025 1:00 PM EST Office Visit [facility] MED & PEDS [address] [place], [place] [phone] Wayne Zee CNP [address] [place] [address] Scheduled Referrals Name Type Priority Associated Diagnoses Orde r Schedule Referral to Pharmacy CDTM Outpatient Referral Routine Type 2 diabetes mellitus with stage 3 chronic kidney disease, without long-term current use of insulin, unspecified whether stage 3a or 3b CKD (HCC) Essential hypertension Ordered: 08/26/2025 documented as of this encounter Goals Goal Patient Goal Type Associated Problems Recent Progress Patient-Stated? Author Blood Pressure < 140/90 Blood Pressure 143/72(08/26 2:33 PM EST) No Jaren Martines, PharmBubba Hemoglobin A1c < 8 Result Component 8.5(11/29/19 11:08 AM EDT) No Jaren Martines PharmD Note: Age 77, multiple comorbidities Help patients manage their type 2 diabetes Care Plan Help patients manage their type 2 diabetes Dennis Jimenez MD Weekly blood pressure task Care Plan Weekly blood pressure task No Dennis Carias MD Help patients manage their type 2 diabetes Care Plan Help patients manage their type 2 diabetes No Dennis Carias MD Patient has chronic kidney disease Care Plan Patient has chronic kidney disease No Dennis Carias MD Weekly blood pressure task Care Plan Weekly blood pressure task Dennis Jimenez MD Patient has chronic kidney disease Care Plan Patient has chronic kidney disease No Dennis Carias MD documented as of this encounter Procedures Procedure Name Priority Date/Time Associated Diagnosis Comments URINALYSIS, COMPLETE, WITH REFLEX TO CULTURE Routine 08/26/2025 3:05 PM EST Type 2 diabetes mellitus with stage 3 chronic kidney disease, without long-term current use of insulin, unspecified whether stage 3a or 3b CKD (HCC) Other urinary incontinence documented in this encounter Results * (ABNORMAL) Urinalysis, Complete, with Reflex to Culture (08/26/2025 3:05 PM EST) Color Urine Yellow [facility] Appearance Urine Clear [facility] PH 5.5 5.0 - 9.0 [facility] Glucose Urine UA >=1000(A) Negative mg/dL [facility] Urine Blood Negative Negative [facility] Specific [place] - Urine 1.020 1.005 - 1.025 [facility] Urine Protein Negative Neg-Trace mg/dL [facility] Urine Ketones Negative Negative mg/dL [facility] Nitrite Urine Negative Negative [facility] Leukocyte Esterase Urine Small (1+)(A) Negative [facility] RBC Urine 0-2 0 - 2 /HPF [facility] Urine WBC >50(A) 0 - 5 /HPF [facility] Urine Squamous Epithelial Cell 0-2 0 - 2 /HPF [facility] Urine Bacteria 4+ None Seen [facility] Hyaline Casts, Urine 0-2 0 - 2 /LPF [facility] Urine 08/26/2025 3:05 PM EST 08/26/2025 6:07 PM EST Narrative [facility] - 08/26/2025 7:47 PM EST [id number], Clean Catch us Dennis Carias MD LAB URINE ORDERABLES Final Result [facility] [address] [place] [address] [phone] documented in this encounter Visit Diagnoses Diagnosis Muscle spasm- Primary Spasm of muscle Type 2 diabetes mellitus with stage 3 chronic kidney disease, without long-term current use of insulin, unspecified whether stage 3a or 3b CKD (HCC) Essential hypertension Unspecified essential hypertension Other urinary incontinence documented in this encounter Additional Health Concerns Active Problems Noted Date Diagnosed Date Help patients manage their type 2 diabetes 08/26 Weekly blood pressure task 08/26/2025 Help patients manage their type 2 diabetes 08/26 Patient has chronic kidney disease 08/26/2025 Weekly blood pressure task 08/26/2025 Patient has chronic kidney disease 08/26/2025 Assessment Noted Time PHQ-9 Depression Total Score: 4 10/02/19 10:43 AM EST documented as of this encounter Care Teams Orthotic Technician Relationship Specialty Start Date End Date Wayne Zee CNP [address] [place] [address] PCP - General Family Medicine 07/14/25 documented as of this encounter
[2025-08-26 19:40] LABS: Appearance Urine Clear; Glucose Urine UA >=1000 mg/dL (Negative); PH 5.5 (5.0-9.0); Specific Gravity - Urine 1.020 (1.005-1.025); UMIC TRIGGER UACC YES
[2025-08-26 19:46] LABS: UACC Culture Trigger YES
--- OUTSIDE RECORDS SUMMARY | 2025-08-27 00:41 | XMS_ITS | Encounter Summary ---
Author Organization [employer] Address [address] [facility] 7t [place] [address] Care Team Providers Care Rivet Passer Name Role Phone Wayne Zee CNP Primary Care Provider [phone] Reason for Visit * Reason Onset Date Comments Durable Medical Equipment 08/24/2025 Encounter Details Date Type Department Care Team ([facility] st Contact Info) Description 08/24/2025 Telephone [facility] MEDICINE [address] [place] [address] Wayne Zee CNP [address] [place] [address] Durable Medical Equipment Social History Tobacco Use Types Packs/Day Years [...] encounter Miscellaneous Notes * Telephone Encounter - Marissa Lindsey LPN - 08/25/2025 1:01 PM EST Pt has an upcoming appointment. These DME needs should be discuss then Call was mad to inform no answer LVM Tc from [facility] requesting DME for pt. DME: Gloves - XL Diapers - L Bed Pads. If any questions contact Cj at [phone]. * Telephone Encounter - Ralph Gautam - 08/24/2025 1:26 PM EST Tc from [facility] requesting DME for pt. DME: Gloves - XL Diapers - L Bed Pads. If any questions contact Cj at [phone]. documented in this encounter Plan of Treatment Upcoming Encounters Date Type Department Care Team (Late st Contact Info) Description 10/15/2025 1:00 PM EST Office Visit [facility] MED & PEDS [address] [place], [place] [phone] Wayne Zee CNP [address] [place] [address] documented as of this encounter Goals Goal Patient Goal Type Associated Problems Recent Progress Patient-Stated? Author Blood Pressure < 140/90 Blood Pressure 143/72(08/26 2:33 PM EST) No Jaren Martines PharmD Hemoglobin A1c < 8 Result Component 8.5(11/29/19 11:08 AM EDT) No Jaren Martines PharmD Note: Age 77, multiple comorbidities documented as of this encounter Visit Diagnoses Not on filedocumented in this encounter Additional Health Concerns Assessment Noted Time PHQ-9 Depression Total Score: 4 10/02/19 10:43 AM EST documented as of this encounter Care Teams Rivet Passer Relationship Specialty Start Date End Date Wayne Zee CNP [address] [facility] [place] [address] PCP - General Family Medicine 07/14/25 documented as of this encounter
--- OUTSIDE RECORDS SUMMARY | 2025-08-27 00:41 | XMS_ITS | Encounter Summary ---
Author Organization [employer] Address [address] [facility] 7t [place] [address] Care Team Providers Care Airport Operations Manager Name Role Phone Wayne Zee CNP Primary Care Provider [phone] Encounter Details Date Type Department Care Team ([facility] st Contact Info) Description 08/26/2025 Telephone [facility] MEDICINE [address] [place] [address] Wayne Zee CNP [address] [place] [address] Social History Tobacco Use Types Packs/Day Years [...] encounter Miscellaneous Notes * Telephone Encounter - Mildred Gautam - 08/26/2025 4:05 PM EST Pharmacy [facility] attempted outreach call on 08/26/25 for CDTM - Diabetes appointment; however, unable to reach patient. LVM for patient to contact Mildred Gautam at [phone]. documented in this encounter Plan of Treatment Upcoming Encounters Date Type Department Care Team ([facility] st Contact Info) Description 10/15/2025 1:00 PM EST Office Visit [facility] MED & PEDS [address] [place] [address] Wayne Zee CNP [address] [place] [address] documented as of this encounter Goals Goal Patient Goal Type Associated Problems Recent Progress Patient-Stated? Author Blood Pressure < 140/90 Blood Pressure 143/72(08/26 2:33 PM EST) No Jaren Martines, PharmD Hemoglobin A1c < 8 Result Component 8.5(11/29/19 11:08 AM EDT) No Jaren Martines, PharmD Note: Age 77, multiple comorbidities Help patients manage their type 2 diabetes Care Plan Help patients manage their type 2 diabetes Dennis Jimenez MD Weekly blood pressure task Care Plan Weekly blood pressure task No Dennis Carias MD Help patients manage their type 2 diabetes Care Plan Help patients manage their type 2 diabetes Dennis Jimenez MD Patient has chronic kidney disease Care Plan Patient has chronic kidney disease Dennis Jimenez MD Weekly blood pressure task Care Plan Weekly blood pressure task No Dennis Carias MD Patient has chronic kidney disease Care Plan Patient has chronic kidney disease Dennis Jimenez MD documented as of this encounter Visit Diagnoses Not on filedocumented in this encounter Additional Health Concerns Active [...] documented as of this encounter Care Teams Airport Operations Manager Relationship Specialty Start Date End Date Wayne Zee CNP [address] [place] [address] PCP - General Family Medicine 07/14/25 documented as of this encounter
--- OUTSIDE RECORDS SUMMARY | 2025-08-27 00:41 | XMS_ITS | Encounter Summary ---
Author Organization [employer] Address [address] [facility] 7[address] [place] [address] Care Team Providers Care Game Producer Name Role Phone Vanessa Pettit MD Primary Care Provider [phone] Wayne Zee CNP Primary Care Provider [phone] Encounter Details Date Type Department Care Team (Late st Contact Info) Description 11/14/2024 Orders Only [facility] MEDICINE [address] [place], [place] [phone] Dennis Carias MD [address] [place] [address] Type 2 diabetes mellitus with stage 3 [...] the past 12 months, has t he [employer], gas, oil or water company threatened to [...] Description 10/15/2025 1:00 PM EST Office Visit [facility] MED & PEDS [address] [place] [address] Wayne Zee CNP [address] [place] [address] documented as of this encounter Goals Goal [...] whether stage 3a or 3b CKD (HCC) documented in this encounter Additional Health Concerns Assessment Noted Time PHQ-9 Depression Total Score: 4 10/02/19 10:43 AM EST documented as of this encounter Care Teams Game Producer Relationship Specialty Start Date End Date Vanessa Pettit MD [address] [place] [address] PCP - General Family Medicine 08/29/12 07/13/25 Wayne Zee CNP [address] [place] [address] PCP - General Family Medicine 07/14/25 documented as of this encounter
--- OUTSIDE RECORDS SUMMARY | 2025-08-27 00:41 | XMS_ITS | Data Portability ---
Author Organization [place] - [facility] Address [address] [place] [id number] Care Team Providers Care Audiology Doctor Name Role Phone NICKO HARRISON OTHER Assessment [...] smell as normal. Exam: Pt is alert, hong konger speaking only, non toxic appearing Normal heart [...] 19 Plan/Discussion: Anne was able to speak Montserratian to patient and convey Covid results will [...] I have accessed patient records on the [employer]. This information was pertinent in my medical decision making today. Proper Personal Protective Equipment (PPE), including gloves, eye protection, N95 mask, gown, and shoe covers were donned and doffed appropriately and all equipment cleaned using approved technique with germicidal disposable wipes prior to and after care of this patient according to [facility] protocols. [email or web address] Not available 10/01/2020 21:04:41 10/08/2020 10/08/2020 Overview/History : 75-year-old Montserratian speaking only female with past medical history significant for diabetes, hyperlipidemia, hypertension, CKD, hypothyroidism, osteoarthritis, takotsubo syndrome, GERD, and CHF, known to [facility] but new to this provider, who presents [...] 3 days prior to breaking quarantine. [facility] or productive cough. Follow up with PCP. We will call with COVID test results in 3-5 days. Call Emergency contact/HCP to give results. Thank you for your visit with [facility] today. We cannot always find the exact [...] in your condition between 8am-10pm, please call [facility] at [phone] to help navigate your care. Proper Personal Protective Equipment (PPE), including gloves, eye protection, N95 mask, gown, and shoe covers were donned and doffed appropriately and all equipment cleaned using approved technique with germicidal disposable wipes prior to and after care of this patient according to [facility]'s infection prevention protocols. In order to obtain [...] SARS CoV 2 RNA (COVID-19) , QL, court assistant-PCR, respirator y specimen 2020 [email or web address] [facility] (Centralized Electronic Ordering - All Locations), Patient Can Go To The Location Of Their Choice, [id number] 08:30:55 SARS CoV 2 RNA (COVID-19) , QL, court assistant-PCR, respirator y specimen 2020 IOANA [facility] (Centralized Electronic Ordering - All Locations), Patient Can Go To The Location Of Their Choice, [id number] 13:35:06 Referral None recorded. Procedures None recorded. Surgeries None recorded. Imaging None recorded. Medication Orders Tessalon Perles 100 mg capsule 2020 INTERFACE Not available 16:17:22 Patient TargetsNo targets recorded. Patient Instructions Encounter Date Encounter Id Patient Instructions Last Modified By Organization Details Last Modified Time 10/01/2020 [id number] What is coronavirus disease 2019? Coronavirus disease 2019 (COVID-19) is a respiratory illness that can spread from person to person. The virus that causes COVID-19 is a novel coronavirus that was first identified during an investigation into an outbreak in [facility]. Can I get COVID-19? Yes. COVID-19 is [...] least 20 seconds. Use an alcohol-based hand quill winder that contains at least 60% alcohol if [...] relieve symptoms. FOR MORE INFORMATION: [email or web address] Not available 10/01/2020 20:49:46 Reason for Referral None Reported. Results Created Date Observation Date Name Description Value Unit Range Abnormal Flag Note LastModifiedBy Organization Detail LastModifiedTime 10/01/19 21 10/04/2020 SARS CoV 2 RNA (COVI D-19) , QL, court assistant-P CR, respi rator y speci men covid-19, (RT)-PCR (neg) NEGAT SERGIO 2019- novel Coron aviru s (2019 -nCoV ) not detec carol by the qRT-P CR assay . If clini jan suspi cion for COVID -19 is high, parish nue to maint ain preca ution s and consi parisa repea t testi ng. Resul t repor carol to [facility]. This test has been autho rized by the FDA under an Emerg ency Use Autho rizat ion (EUA) for use by autho rized labor atori es. Test perfo rmed by [facility] at the [facility] and Gareth mcclendon, [address] [place] [address] . CLIA ID: [id number] , CAP: [id number] 96. Medic al Direc tor: Sallie Genao, PhD FACMG (NOTE ) The CRSP SARS- CoV-2 Real- [...] limit ed to the Clini jan [facility] or at the [facility] which is certi fied under the Clini [...] Go To The Location Of Their Choice, [id number] 10/04/2020 13:35:06 10/08/19 21 10/08/2020 SARS CoV 2 RNA, QL probe , unspe cifie d speci men covid-19 PCR specimen source NASAL Not Available [facility] (Centralized Electronic Ordering - All Locations) Patient Can Go To The Location Of Their Choice, [id number] 10/09/2020 14:27:28 10/08/1910/09/2020 SARS CoV 2 RNA, QL probe , unspe cifie d speci men covid-19 PCR result (neg) abnormal POSIT SERGIO Posit sergio for detec tion of 2019- novel Coron aviru s (2018nCoV ) by real- time RT-PC R. Resul t repor carol to [facility]. To preve nt error s in diagn [...] perfo rmed by real time PCR utili [facility] SONNY Babel[employer]0 SARS- CoV-2 test. Not Available [facility] (Centralized Electronic Ordering - All Locations) Patient Can Go To The Location Of Their Choice, [id number] 10/09/2020 14:27:28 Result Notes None recorded. Procedures Surgical History Date Name Laterality Status Provider Name and Address Organization Details Recorded Time 10/01/19 21 Medication Review completed Courtney Wren NP [address] [place] [address] [place], [place], [address], [place] [facility] 10/01/2020 20:49:38 Imaging Results None recorded. Procedure [...] Available Not Available Not Available Fluad Quad [id number](6 5yr up)(PF) 60 mcg (15 mcg x 4)/0.5mL IM syringe ADM 0.5ML IM UTD active Not Available Not Available No t Available Vitals Date Recorded Heart rate Body temperature Respiratory rate Oxygen saturation Systolic And Diastolic Provider Name and Address Organization Details Last Updated DateTime 1 83 /min 97.2 [degF] 18 /min 99 % 130/70 mm[Hg] Not Available [facility] 20:52:32 Date Recorded Oxygen saturation Heart rate Body temperature Respiratory rate Systolic And Diastolic Provider Name and Address Organization Details Last Updated DateTime 1 100 % 84 /min 98 [degF] 16 /min 138/62 mm[Hg] Not Available [facility] 1 16:00:17 Social History None recorded. Functional Status None recorded. Mental Status None recorded. Family History Relationship Description Onset Age of this Age Resolved Age Notes LastModified by Organization Details LastModified Time Father Diabetes mellitus [email or web address] Not available 2020 20:47:08 Medical History Condition Response Diabetes Y High Cholesterol Y Cancer N Hypertension Y Stroke N Asthma N COPD N Kidney Disease Y Gynecological HistoryNo gynecological history recorded. Obstetrics History GPAL:G 0 P 0 0 0 0 Past Encounters Encounter ID Performer Location Encounter Start Date Encounter Closed Date Diagnosis/Indication Diagnosis SNOMED-CT Code Diagnosis ICD10 Code Diagnosis IMO Codes Diagnosis Note [id number] Courtney Wren NP [facility] [address] [place] [address] 10/01/2020 20:41:04 10/03/2020 21:22:15 Exposure to SARS-CoV-2 107945944 Z20.822 Diabetes mellitus 704352 09 E11.9 Exposure t o communicable disease 173584411 Z20.828 [id number] TORIBIO DOZIER [facility] [address] [place] [address] 10/08/2020 15:56:27 10/12/2020 01:34:42 Suspected COVID-19 514382712 Z03.89 Exposure t o communicable disease 910024594 Z20.822 Viral uppe r respiratory tract infection 220348620 J06.9 Health Concerns Section Related Observation LastModified by Organization Detai ls LastModified Time None Recorded Concern Status LastModified by Organization Details LastModified Time None Recorded Advance Directives Directive None Recorded Payers Insurance Date Sequence Insurance Name Policy Number Policy Jimenez Covered Member ID Jimenez Member ID Guarantor Name 10/08/2020 2 [place] [facility] Genevieve Lugo [id number] Genevieve Lugo 08/29/2021 1 [facility] (MEDICARE REPLACEMENT HMO) Genevieve Lugo [id number] Genevieve Lugo 10/01/2020 1 *SELF PAY* Genevieve Lugo [id number] Genevieve Lugo Notes Date Note Type Note Provider Name and Address Organization Details Recorded Time 10/01/2020 text/html COVID-19 Symptom s January 2020Reported by Patient This is a 75yo female who is [...] like to be tested. Courtney Wren NP [address] [facility], [place], [address], [place] [facility] 10/01/2020 21:07:21 10/08/2020 text/html 75-year-old female with past medical history significant for diabetes, hyperlipidemia, hypertension, CKD, hypothyroidism, osteoarthritis, takot subo syndrome, GERD, and CHF, known to [facility] but new to this provider, who presents [...] or voiding. TORIBIO DOZIER [address], [place], [address], [place] [facility] 10/08/2020 16:33:37 OBGyn Episode No OBEpisode recorded.
--- OUTSIDE RECORDS SUMMARY | 2025-08-27 00:41 | XMS_ITS | Clinical Summary ---
Author Organization [employer] Address [address] [facility] [address] [place] [address] Care Team Providers Care Regulatory Affairs Assistant Name Role Phone Yayo Yaredmaricruzray DONNA Primary Care Provider [phone] Allergies No known active allergies Medications acetaminophen (Tylenol 8 Hour) 650 MG ER tablet take 1 Tablet by oral route every 8 hours as needed 020 Active isosorbide mononitrate ER (Imdur) 30 MG 24 hr tablet Take 1 tablet by mouth in the morning. 022 Active Lifitegrast (Xiidra) 5 % solution Administer 1 drop into affected eye(s) every 12 (twelve) hours. Active Lancet Devices (Autolet) lancing device 1 each by Other route if needed. Use as instructed Active atorvastatin (Lipitor) 40 MG tablet Take 40 mg by mouth at bedtime. 023 Active mirtazapine (Remeron) 15 MG tablet Take 1 tablet (15 mg) by mouth at bedtime. 30 tablet 3 023 Active Blood Glucose Monitoring Suppl (ONE TOUCH ULTRA 2) w/Device kit TEST BLOOD SUGAR TWICE DAILY 1 kit 2 023 Active lidocaine-prilo joss (Emla) 2.5-2.5 % cream Apply topically 2 times daily. 30 g 11 024 Active OneTouch Ultra Test test stripIndication s:Type 2 diabetes mellitus with stage 3 chronic kidney disease, without long-term current use of insulin, unspecified whether stage 3a or 3b CKD (HCC) TEST BLOOD SUGAR TWICE DAILY 100 strip 11 024 Active Lancets (OneTouch Delica Plus [id number]) [facility] TEST BLOOD SUGAR TWICE DAILY 100 each 11 12/19/2 024 Active hydrALAZINE (Apresoline) 25 MG tablet TAKE ONE TABLET EVERY MORNING 30 tablet 08/17/20 11:47 AM EST 025 Active traZODone (Desyrel) 50 MG tabletIndicatio ns:Insomnia, unspecified type TAKE ONE TABLET EVERY NIGHT AT BEDTIME 30 tablet 08/17/20 11:47 AM EST 025 Active Dulaglutide (Trulicity) 1.5 MG/0.5ML solution auto-injectorIn dications:Type 2 diabetes mellitus with stage 3 chronic kidney disease, without long-term current use of insulin, unspecified whether stage 3a or 3b CKD (HCC) Inject 1.5 mg under the skin 1 (one) time per week. 2 mL Active amLODIPine (Norvasc) 10 MG tablet TAKE ONE TABLET EVERY MORNING 90 tablet 3 Active levothyroxine (Synthroid, Levoxyl) 75 MCG tablet TAKE ONE TABLET EVERY MORNING 90 tablet Active Aspirin Adult Low Strength 81 MG EC tablet TAKE ONE TABLET EVERY MORNING 30 tablet 11 Active meloxicam (Mobic) 7.5 MG tablet Take 1 tablet (7.5 mg) by mouth Once per day. 60 tablet 2 Active carvedilol (Coreg) 6.25 MG tablet TAKE ONE TABLET IN THE MORNING AND EVENING WITH FOOD 60 tablet 3 08/17/20 11:47 AM EST Active Jardiance 25 MG TAKE ONE TABLET EVERY MORNING BEFORE BREAKFAST 30 tablet 3 Active loratadine (Claritin) 10 MG tablet TAKE ONE TABLET EVERY MORNING 30 tablet 3 Active metFORMIN (Glucophage) 500 MG tablet TAKE ONE TABLET TWICE DAILY IN THE MORNING AND AT BEDTIME 60 tablet 3 2025 Active Trulicity 1.5 MG/0.5ML solution auto-injectorIn dications:Type 2 diabetes mellitus with stage 3 chronic kidney disease, without long-term current use of insulin, unspecified whether stage 3a or 3b CKD (HCC) INJECT ONE PEN (=1.5MG) SUBCUTANEOUSLY ONCE A WEEK DIRECTED 2 mL 08/17/20 11:47 AM EST Active omeprazole (PriLOSEC) [address] capsule TAKE ONE CAPSULE EVERY MORNING BEFORE BREAKFAST 90 capsule 3 Active tiZANidine (Zanaflex) 2 MG tabletIndicatio ns:Muscle spasm Take 1 tablet (2 mg) by mouth before breakfast and before evening meal. 30 tablet 08/26/20 3:34 PM EST 2024 Active Blood Pressure kitIndications: Essential hypertension To check the BP daily 1 kit Active omeprazole (PriLOSEC) [address] capsule TAKE ONE CAPSULE EVERY MORNING BEFORE BREAKFAST 90 capsule 3 024 2024 Discontinued(R eorder (will not trigger notification to Pharmacy)) meloxicam (Mobic) 7.5 MG tablet Take 1 tablet (7.5 mg) by mouth 2 times daily. 60 tablet 2 2024 Discontinued Jardiance 25 MG TAKE ONE TABLET EVERY MORNING BEFORE BREAKFAST 30 tablet 3 2024 Discontinued(R eorder (will not trigger notification to Pharmacy)) loratadine (Claritin) 10 MG tablet TAKE ONE TABLET EVERY MORNING 30 tablet 3 2024 Discontinued(R eorder (will not trigger notification to Pharmacy)) metFORMIN (Glucophage) 500 MG tablet TAKE ONE TABLET TWICE DAILY IN THE MORNING AND AT BEDTIME 60 tablet 3 2024 Discontinued(R eorder (will not trigger notification to Pharmacy)) carvedilol (Coreg) 6.25 MG tablet TAKE ONE TABLET IN THE MORNING AND EVENING WITH FOOD 60 tablet 3 2024 Discontinued(R eorder (will not trigger notification to Pharmacy)) Trulicity 1.5 MG/0.5ML solution auto-injectorIn dications:Type 2 diabetes mellitus with stage 3 chronic kidney disease, without long-term current use of insulin, unspecified whether stage 3a or 3b CKD (HCC) INJECT ONE PEN (=1.5MG) SUBCUTANEOUSLY ONCE A WEEK DIRECTED 2 mL 3 2024 Discontinued(R eorder (will not trigger notification to Pharmacy)) Active Problems Problem Noted Date Diagnosed Date Hypothyroidism 11/27/2022 Chronic kidney disease (CKD) 09/07/2022 Hypertensive kidney disease, stage III ([facility]/HCC) 09/22/2019 Acquired trigger finger 12/11/2011 Allergic rhinitis 12/11/2011 Diabetes mellitus 12/11/2011 Essential hypertension 12/11/2011 Pain in limb 12/11/2011 Hypercholesterolemia 12/11/2011 Encounters Date Type Department Care Team Description 08/26/2025 2:20 PM EST Office Visit [facility] [address] [place] [address] Dennis Carias MD Muscle spasm (Primary Dx); Type 2 diabetes mellitus with stage 3 chronic kidney disease, without long-term current use of insulin, unspecified whether stage 3a or 3b CKD ([facility]); Essential hypertension; Other urinary incontinence 08/26/2025 Telephone [facility] [address] [place] [address] Wayne Zee CNP 08/26/2025 Travel 08/24/2025 Telephone [facility] [address] [place] [address] Wayne Zee CNP Durable Medical Equipment 08/24/2025 Telephone [facility] [address] [place] [address] Wayne Zee CNP Nurse Triage 08/22/2025 Refill [facility] [address] [place] [address] Vanessa Pettit MD 08/08/2025 Refill [facility] [address] [place] [address] Rose Munoz MD Type 2 diabetes mellitus with stage 3 chronic kidney disease, without long-term current use of insulin, unspecified whether stage 3a or 3b CKD (HCC) 08/08/2025 Refill [facility] [address] [place] [address] Vanessa Pettit MD 08/03/2025 Refill [facility] [address] [place] [address] Vanessa Pettit MD 07/25/2025 Refill [facility] [address] [place] [address] Vanessa Pettit MD 06/27/2025 Refill [facility] [address] [place] [address] Vanessa Pettit MD from Last 3 Months Immunizations Immunization Administration Dates Next Due Influenza High-dose Quadriva [...] Mass Index 24.66 08/26/2025 2:33 PM EST Plan of Treatment Upcoming Encounters Date Type Department Care Team (Late st Contact Info) Description 10/15/2025 1:00 PM EST Office Visit [facility] [address] [place] [address] Wayne Zee, DONNA [address] [place] [address] Health Maintenance Due Date Last Done Comments Dental Oral Exam 1944 Dental Prophylaxis 1944 Dental X-Ray: Bitewings 1944 Eye Exam 02/15/1954 Alcohol/Substance Use Screening 1956 Dental X-Ray: Full Mouth 09/23/2018 09/22/2015 Diabetes: Foot Exam 11/07/2024 11/07/2023, 11/07/2023, 11/07/2023, Additional history exists SDOH Screening 01/10/2025 01/11/2024 Diabetes: Hemoglobin A1C 02/28/2025 025, 05/15/2024, 01/11/2024, Additional history exists Depression Screening 10/02/2025 10/02/2024, 10/02/19 25 Lipid Panel 11/28/2025 11/28/2024, 04/18, 01/11/2024, Additional history exists COVID-19 Vaccine ( season) 2025 06/03/2025, 04/28/2024, 04/21/2022, Additional history exists Tobacco Screening 08/26/2026 08/26/2025 DTaP/Tdap/Td Vaccines (2 - Td or Tdap) 03/06/2028 03/06/2018 Zoster Vaccines Completed 11/16/2022, 09/07/2022 Pneumococcal Vaccine: 50+ Years Completed 04/28/2024, 08/05/2018, 06/27/2016 Influenza Vaccine Completed 06/03/2025, , 06/07/2022, Additional history exists RSV Patients and Patients Aged 60 years or older Completed 06/15/2025 HIB Vaccines Aged Out No longer eligi [...] patient's age to complete this topic Meningococcal B Vaccine Aged Out No l onger eligible based on patient's age to complete [...] Weekly blood pressure task Dennis Jimenez MD Help patients manage their type 2 [...] has chronic kidney disease Dennis Jimenez MD Procedures Procedure Name Priority Date/Time Associated Diagnosis Comments URINALYSIS, COMPLETE, WITH REFLEX TO CULTURE Routine 08/26/2025 3:05 PM EST Type 2 diabetes mellitus with stage 3 chronic kidney disease, without long-term current use of insulin, unspecified whether stage 3a or 3b CKD (HCC) Other urinary incontinence HEMOGLOBIN A1C Routine 11/28/2024 11:08 AM EDT Type 2 diabetes mellitus with stage 3 chronic kidney disease, without long-term current use of insulin, unspecified whether stage 3a or 3b CKD (CMS/HCC) LIPID PANEL, STANDARD Routine 11/28/2024 11:08 AM EDT Type 2 diabetes mellitus with stage 3 chronic kidney disease, without long-term current use of insulin, unspecified whether stage 3a or 3b CKD (CMS/HCC) Essential hypertension PANORAMIC RADIOGRAPHIC IMAGE Routine 09/22/2015 12:00 AM EST from Last 3 Months or Most Recently Relevant to Health Maintenance Results * (ABNORMAL) Urinalysis, Complete, with Reflex to Culture (08/26/2025 3:05 PM EST) Color Urine Yellow [facility] Appearance Urine Clear [facility] PH 5.5 5.0 - 9.0 [facility] Glucose Urine UA >=1000(A) Negative mg/dL [facility] Urine Blood Negative Negative [facility] Specific [place] - Urine 1.020 1.005 - 1.025 [facility] Urine Protein Negative Neg-Trace mg/dL [facility] Urine Ketones Negative Negative mg/dL [facility] Nitrite Urine Negative Negative [facility] Leukocyte Esterase Urine Small (1+)(A) Negative [facility] RBC Urine 0-2 0 - 2 /HPF [facility] Urine WBC >50(A) 0 - 5 /HPF [facility] Urine Squamous Epithelial Cell 0-2 0 - 2 /HPF [facility] Urine Bacteria 4+ None Seen [facility] Hyaline Casts, Urine 0-2 0 - 2 /LPF [facility] Urine 08/26/2025 3:05 PM EST 08/26/2025 6:07 PM EST Narrative [facility] - 08/26/2025 7:47 PM EST [id number], Clean Catch us Dennis Carias MD LAB URINE ORDERABLES Final Result [facility] [address] [place] [address] [phone] * (ABNORMAL) Hemoglobin A1c (11/28/2024 11:08 AM EDT) Hemoglobin A1c 8.5(H) <6.0 % [facility] Comment:Hemoglobin A1C Refer ence Range Adults: 4.8 - 6.0 % Non diabetic: < 6.0 % Goal: < 7.0 %Additional Action Suggested: > 8.0 %Note: Hemoglobin A1c results are invalid for patients with abnormal amounts of HbF. Blood transfusions may impact the HbA1c concentration in the patient sample. Estimated Average Glucose 197 mg/dL [facility] Comment:eAG = Estimated ave rage glucose which is %A1C expressed asaverage glucose, using the formula of the S9B-FepwcicUdjncpm Glucose study (ADAG), Diabetes Care, Vol.31,#8,Apr. 2007 Blood Venous blood specimen / Unknown 11/28/2024 11:08 AM EDT 11/28/2024 2:44 PM EDT us Vanessa Pettit MD LAB BLOOD ORDERABLES Final Resul t [facility] [address] [place] [phone] * (ABNORMAL) Lipid Panel, Standard (11/28/2024 11:08 AM EDT) Triglycerides 99 <150 mg/dL [facility] Comment:Desirable Triglyceri de: less than 150 mg/dLBorderline High Triglyceride 150-199 mg/dLHigh Triglyceride: 200-499 mg/dLVery High Triglyceride: greater than or equal to 5OO mg/dL Cholesterol 197 <200 mg/dL [facility] Comment:Desirable Cholestero l: less than 200 mg/dLBorderline High Cholesterol: 200-239 mg/dLHigh Cholesterol: greater than 239 mg/dL LDL Cholesterol Calculated 115(H) <100 mg/dL [facility] Comment:Desirable LDL: less than 100 mg/dLNear Optimal/Above Optimal LDL: 110- 129 mg/dLBorderline High LDL: 130-159 mg/dLHigh LDL: 160-189 mg/dLVery High LDL: greater than or equal to 190 mg/dL HDL Cholesterol 63 >40 mg/dL [facility] Comment:Desirable HDL: great er than 40 mg/dL Note: This HDL assay may give artificially low results in patients with liver disease. Blood Venous blood specimen / Unknown 11/28/2024 11:08 AM EDT 11/28/2024 2:44 PM EDT us Vanessa Pettit MD LAB BLOOD ORDERABLES Final Resul t [facility] [address] [place] [address] [phone] from Last 3 Months or Most Recently Relevant to Health Maintenance Additional Health Concerns Active Problems Noted Date Diagnosed Date Help patients manage their type 2 diabetes 08/26 Weekly blood pressure task 08/26/2025 Help patients manage their type 2 diabetes 08/26 Patient has chronic kidney disease 08/26/2025 Weekly blood pressure task 08/26/2025 Patient has chronic kidney disease 08/26/2025 Insurance [facility] Care Teams Regulatory Affairs Assistant Relationship Specialty Start Date End Date Wayne Zee CNP [address] [place] [id number] PCP - General Family Medicine 07/14/25
--- OUTSIDE RECORDS SUMMARY | 2025-08-27 00:41 | XMS_ITS | Encounter Summary ---
Author Organization [employer] Address 75 [facility] 7t [place] [address] Care Team Providers Care Membership Counselor Name Role Phone Vanessa Pettit MD Primary Care Provider [phone] Wayne Zee CNP Primary Care Provider [phone] Encounter Details Date Type Department Care Team ([facility] Contact Info) Description 03/16/2023 Orders Only [facility] MED & PEDS [address] [place] [address] Vanessa Pettit MD 505 [place] [address] Social History Tobacco Use Types Packs/Day Years [...] Upcoming Encounters Date Type Department Care Team ([facility] Contact Info) Description 10/15/2025 1:00 PM EST Office Visit [facility] [address] [place] [address] Wayne Zee CNP 505 [place] [address] documented as of this encounter Goals Goal [...] on filedocumented in this encounter Care Teams Membership Counselor Relationship Specialty Start Date End Date Vanessa Pettit MD [address] [place] [address] PCP - General Family Medicine 08/29/12 07/13/25 Wayne Zee CNP 505 [place] [address] PCP - General Family Medicine 07/14/25 documented as of this encounter
--- OUTSIDE RECORDS SUMMARY | 2025-08-27 00:41 | XMS_ITS | Encounter Summary ---
Author Organization [employer] Address 75 [facility] 7t [place] [address] Care Team Providers Care Enrollment Nurse Name Role Phone Vanessa Pettit MD Primary Care Provider [phone] Wayne Zee CNP Primary Care Provider [phone] Encounter Details Date Type Department Care Team (Late Contact Info) Description 01/22/2023 Orders Only [facility] MED & PEDS [address] [place], [place] [phone] Jaren Martines, PharmD Social History Tobacco Use [...] Upcoming Encounters Date Type Department Care Team ([facility] Contact Info) Description 10/15/2025 1:00 PM EST Office Visit [facility] MED & PEDS [address] [place], [place] [phone] Wayne Zee CNP 505 [place] [address] documented as of this encounter Goals Goal [...] on filedocumented in this encounter Care Teams Enrollment Nurse Relationship Specialty Start Date End Date Vanessa Pettit MD [address] [place] [address] PCP - General Family Medicine 08/29/12 07/13/25 Wayne Zee CNP [address] [place] [address] PCP - General Family Medicine 07/14/25 documented as of this encounter
--- OUTSIDE RECORDS SUMMARY | 2025-08-27 00:41 | XMS_ITS | Encounter Summary ---
Author Organization [employer] Address 75 [facility] 7t [place] [address] Care Team Providers Care Professional Athletes Coach Name Role Phone Vanessa Pettit MD Primary Care Provider [phone] Wayne Zee CNP Primary Care Provider [phone] Encounter Details Date Type Department Care Team ([facility] Contact Info) Description 09/08/2022 Orders Only [facility] MEDICINE [address] [place], [place] [phone] Vanessa Pettit MD 505 [place], [place] [phone] Type 2 diabetes mellitus without complication, without long-term current use of insulin ([facility]) (Primary Dx) Social History Tobacco Use Types [...] Upcoming Encounters Date Type Department Care Team ([facility] Contact Info) Description 10/15/2025 1:00 PM EST Office Visit [facility] MED & PEDS [address] [place], [place] [phone] Wayne Zee CNP 505 [place] [address] documented as of this encounter Goals Goal [...] complication, without long-term current use of insulin (HCC)- Primary documented in this encounter Care Teams Professional Athletes Coach Relationship Specialty Start Date End Date Vanessa Pettit MD [address] [place] [address] PCP - General Family Medicine 08/29/12 07/13/25 Wayne Zee CNP 505 [place] [address] PCP - General Family Medicine 07/14/25 documented as of this encounter
--- OUTSIDE RECORDS SUMMARY | 2025-08-27 00:41 | XMS_ITS | Encounter Summary ---
Author Organization [facility] Address [address] [place] [address] Phone Care Team Providers Care Title I Teacher Name Role Phone Vanessa Pettit MD Primary Care Provider [phone] Encounter Details Date Type Department Care Team (Late st Contact Info) Description 11/27/2022 Documentation Only [facility], [address] [place] [place] [address] Vanessa Pettit MD [address] [place], [place] [phone] Social History Tobacco Use Types Packs/Day Years [...] on filedocumented in this encounter Care Teams Title I Teacher Relationship Specialty Start Date End Date Vanessa Pettit MD [address] [place] [address] PCP - General 07/22/19 documented as of this encounter
--- OUTSIDE RECORDS SUMMARY | 2025-08-27 00:41 | XMS_ITS | Encounter Summary ---
Author Organization [employer] Address [address] [facility] [address] 7t [place] [address] Care Team Providers Care Swimming Instructor Name Role Phone Yayo Yaredmaricruzray DONNA Primary Care Provider [phone] Encounter Details Date Type Department Care Team (Latest Contact Info) Description 08/26/2025 Travel Social History Tobacco Use Types Packs/Day [...] Description 10/15/2025 1:00 PM EST Office Visit [facility] MED & PEDS 505 [place], [place] [phone] Wayne Zee CNP 505 [place] [address] documented as of this encounter Goals Goal [...] documented as of this encounter Care Teams Swimming Instructor Relationship Specialty Start Date End Date Wayne Zee CNP [address] [place] [address] PCP - General Family Medicine 07/14/25 documented as of this encounter
--- OUTSIDE RECORDS SUMMARY | 2025-08-27 00:41 | XMS_ITS | Encounter Summary ---
Author Organization [employer] Address 75 [facility] 7t [place] [address] Care Team Providers Care Shift Mgr Name Role Phone Wayne Zee CNP Primary Care Provider [phone] Reason for Visit * Reason Comments Med Refill Encounter Details Date Type Department Care Team ([facility] st Contact Info) Description 08/22/2025 Refill [facility] MED & PEDS [address] [place], [place] [phone] Vanessa Pettit MD 505 [place] [address] Social History Tobacco Use Types Packs/Day Years [...] Upcoming Encounters Date Type Department Care Team ([facility] st Contact Info) Description 10/15/2025 1:00 PM EST Office Visit [facility] MED & PEDS [address] [place] [address] Wayne Zee CNP 505 [place] [address] documented as of this encounter Goals Goal [...] documented as of this encounter Care Teams Shift Mgr Relationship Specialty Start Date End Date Wayne Zee CNP 505 [place] [address] PCP - General Family Medicine 07/14/25 documented as of this encounter
--- OUTSIDE RECORDS SUMMARY | 2025-08-27 00:41 | XMS_ITS | Encounter Summary ---
Author Organization [employer] Address 75 [facility] 7t [place] [address] Care Team Providers Care Robotic Toy Inventor Name Role Phone Vanessa Pettit MD Primary Care Provider [phone] Wayne Zee CNP Primary Care Provider [phone] Encounter Details Date Type Department Care Team ([facility] Contact Info) Description 11/17/2022 Orders Only [facility] MED & PEDS [address] [place] [address] Vanessa Pettit MD 505 [place] [address] Stage 3 chronic kidney disease, unspecified whether [...] Upcoming Encounters Date Type Department Care Team ([facility] Contact Info) Description 10/15/2025 1:00 PM EST Office Visit [facility] MED & PEDS [address] [place] [address] Wayne Zee CNP [address] [place] [address] documented as of this encounter Goals Goal Patient Goal Type Associated Problems Recent Progress Patient-Stated? Author Blood Pressure < 140/90 Blood Pressure 143/72(08/26 2:33 PM EST) No Jaren Martines, PharmD Hemoglobin A1c < 8 Result Component 8.5(11/29/19 11:08 AM EDT) No Jaren Martines, SyedD Note: Age 77, multiple comorbidities documented as of this encounter Visit Diagnoses Diagnosis Stage 3 chronic kidney disease, unspecified whether stage 3a or 3b CKD (CMS/HCC) (HCC)- Primary documented in this encounter Care Teams Robotic Toy Inventor Relationship Specialty Start Date End Date Vanessa Pettit MD [address] [place] [address] PCP - General Family Medicine 08/29/12 07/13/25 Wayne Zee CNP [address] [place] [address] PCP - General Family Medicine 07/14/25 documented as of this encounter
--- OUTSIDE RECORDS SUMMARY | 2025-08-27 00:41 | XMS_ITS | Clinical Summary ---
Author Organization [facility], Address [address] [place] [address] [place] [address] Phone Care Team Providers Care Vice President Of Customer Service Name Role Phone Vanessa Pettit MD Primary Care Provider [phone] Allergies No known active allergies Medications ASPIRIN 81 PO Take 1 tablet by mouth 1 (one) time each day Active albuterol HFA (PROAIR HFA) 108 (90 Base) MCG/ACT inhaler Inhale 2 puffs 4 (four) times a day Active Blood Glucose Monitoring Suppl (Wedge [place]uster) w/Device kit USE DIRECTED 07/28/20 19 Active [...] 12/09/19 23 Active Lancets (OneTouch Delica Plus Snfvbv18I) misc 01/24/20 23 Active metFORMIN (GLUCOPHAGE) 500 [...] Hemoglobin A1C 02/27/2023 11/27/2022 Influenza Vaccine (#1) 2025 2, 05/31/2020, 06/25/2019, Additional history exists Pneumococcal Vaccine: 50+ Years Completed 08/05/2018, 06/27/2016 Pneumococcal Vaccine: Peds (0 to 5 Years) and At-Risk Patients (6 to 49 Years) Discontinued 08/05/2018, 06/27/2016 Hepatitis B Vaccine Aged Out [...] (<47.0) [place] [facility] MPV 11.1 (9.4-12.4) [place] [facility] nRBC Count 0.0 #/100 WBC'S [facility] NRBC Absolute 0.0 K/MM3 [facility] Comment: Testing performed or reported by [facility], a Service of [facility], [address] [place] [address] Judy Burton MD, Software Test Technician Blood specimen (specimen) Venous blood / Unknown 07/30/2020 9:08 AM EST 07/30/2020 9:10 AM EST us David Reynolds MD LAB BLOOD ORDERABLES Final Result [facility] from Last 3 Months or Most Recently Relevant to Health Maintenance Insurance [place] Care Teams Vice President Of Customer Service Relationship Specialty Start Date End Date Vanessa Pettit MD [address] [place] [address] PCP - General 07/22/19
--- OUTSIDE RECORDS SUMMARY | 2025-08-27 00:41 | XMS_ITS | Encounter Summary ---
Author Organization [employer] Address 75 [facility] 7t [place] [address] Care Team Providers Care Odd Bundle Worker Name Role Phone Wayne Zee CNP Primary Care Provider [phone] Reason for Visit * Reason Onset Date Comments Nurse Triage 08/24/2025 Encounter Details Date Type Department Care Team ([facility] st Contact Info) Description 08/24/2025 Telephone [facility] [address] [place] [address] Wayne Zee CNP 505 [place] [address] Nurse Triage Social History Tobacco Use Types [...] encounter Miscellaneous Notes * Telephone Encounter - Nelson Pozo RN - 08/24/2025 4:08 PM EST TC placed to patient son. Patient son reported over the last 2 weeks patient has been more forgetful. Son questions if patient is taking her medications because at times her B/P and BS are elevated. Son reported patient denies any pain. Patient is monitored by her PATTERN GATER daily and reports patient is eating and drinking fluids w/o any difficulty. RN advised patient go to the ED for further evaluation. Son declined and reported is very difficult to take to appt and rather have an appt with a provider at [facility] since he will be in [place] on Sunday. RN scheduled an appt with [facility] provider. RN advised sonif patient symptoms worsen to call 911 and take the patient to the ED for further evaluation. Son ve rbalized understanding. Protocol Used: Confusion - Delirium (Adult) Protocol-Based Disposition: See in Office or Video Visit Today Positive Triage Questions: * Brief confusion (now gone) * Patient wants to be seen (or caregiver requests) * All higher-acuity triage questions were negative. Care Advice Discussed: * ing * - General Care Advice * Reasons To Call Back - You have more questions * Telephone Encounter - Ralph Gautam - 08/24/2025 1:20 PM EST Symptom: Confusion Outcome: Schedule a same-day appointment or talk to a nurse or provider today Reason: Caller denied all higher acuity questions Please contact Son at [phone]. documented in this encounter Plan of Treatment Upcoming Encounters Date Type Department Care Team (Late st Contact Info) Description 10/15/2025 1:00 PM EST Office Visit [facility] [address] [place], [place] [phone] Wayne Zee CNP 505 [place] [address] documented as of this encounter Goals Goal [...] documented as of this encounter Care Teams Odd Bundle Worker Relationship Specialty Start Date End Date Wayne Zee CNP [address] [place] [address] PCP - General Family Medicine 07/14/25 documented as of this encounter
--- OUTSIDE RECORDS SUMMARY | 2025-08-27 00:41 | XMS_ITS | Encounter Summary ---
Author Organization [employer] Address 75 [facility] 7t [place] [address] Care Team Providers Care Sales Operations Consultant Name Role Phone Vanessa Pettit MD Primary Care Provider [phone] Wayne Zee CNP Primary Care Provider [phone] Reason for Visit * Reason Comments Med Refill Encounter Details Date Type Department Care Team ([facility] st Contact Info) Description 01/08/2025 Refill [facility] MEDICINE [address] [place] [address] Rose Munoz MD 505 [place] [address] Social History Tobacco Use Types Packs/Day Years [...] [facility] [place] [address] [place] [address] Wayne Zee CNP [address] [place] [address] documented as of this encounter Goals Goal [...] documented as of this encounter Care Teams Sales Operations Consultant Relationship Specialty Start Date End Date Vanessa Pettit MD [address] [place] [address] [phone] PCP - General Family Medicine 08/29/12 07/13/25 Wayne Zee CNP [address] [place] [address] DANNIE TRACEY [address] PCP - General Family Medicine 07/14/25 documented as of this encounter
--- OUTSIDE RECORDS SUMMARY | 2025-08-27 00:41 | XMS_ITS | Encounter Summary ---
Author Organization [employer] Address 75 [facility] 7t [place] [address] Care Team Providers Care Donation Specialist Name Role Phone Vanessa Pettit MD Primary Care Provider [phone] Wayne Zee CNP Primary Care Provider [phone] Reason for Visit * Reason Onset Date Comments new script 03/15/2023 Encounter Details Date Type Department Care Team ([facility] st Contact Info) Description 03/15/2023 Telephone [facility] MEDICINE [address] [place] [address] Vanessa Pettit MD 505 [place] [address] new script Social History Tobacco Use Types [...] 03/15/2023 10:58 AM EDT TC from Amy TOMATO PASTE MAKER of pt requesting a new script for Amlodipine 10mg. By appt on 03/14 per notes medication Amlodipine from 5mg increased to 10mg Inventory Representative see a script on med list but its wrong. PCP DR. Pettit documented in this encounter Plan of Treatment Upcoming Encounters Date Type Department Care Team (Late st Contact Info) Description 10/15/2025 1:00 PM EST Office Visit [facility] MED & PEDS [address] [place] [address] Wayne Zee CNP 505 [place] [address] documented as of this encounter Goals Goal [...] on filedocumented in this encounter Care Teams Donation Specialist Relationship Specialty Start Date End Date Vanessa Pettit MD [address] [place] [address] PCP - General Family Medicine 08/29/12 07/13/25 Wayne Zee CNP [address] [place] [address] PCP - General Family Medicine 07/14/25 documented as of this encounter
== END 2025-08-26 15:56 ==
LOC: HO.CHCLNP 15:55
PROVIDERS: PCP Internal Medicine; Visit Provider Internal Medicine
DX: E11.22 Type 2 diabetes mellitus with diabetic chronic kidney disease (principal); N18.30 Chronic kidney disease, stage 3 unspecified; N39.498 Other specified urinary incontinence
CPT/HCPCS: 81001; 87086